=== PATIENT | female | born 1940 | race Caucasian/White ===

== ENCOUNTER 2019-10-26 13:56 | Outpatient (RCR) | payer MEDICARE, OTHER, SELFPAY ==
--- NOTE | 2019-10-26 15:04 | PTOPEVAL ---
Thank you for referring this patient to [facility]. Please review, sign, date and return this plan of care SUE. I agree with and certify that the following plan of care is medically necessary. Referring Physician Date Admitting Provider: Attending Provider: May Anand MD Referring Provider: *PT Outpatient Evaluation Start: 10/26/19 14:03 Freq: Status: Active Protocol: Document 10/26/19 14:04 JAMAL (Rec: 10/26/19 14:59 [email or web address] [id number]) Therapy Assessment Status Assessment Status Assessment Status Evaluation Outpatient Past Medical History Cardiovascular History Hx Hypertension Yes Musculoskeletal History Hx Joint Replacement Yes: R KNEE Endocrine History Hx Diabetes Yes HEENT History Hx Cataracts Yes: RIGHT Hx Retinal Detachment Yes: RIGHT Other History Hx Cancer Yes: LEFT BREAST LUMPECTOMY Evaluation Information Problem Diagnosis unsteady gait, recent fall Onset 10/02/19 Subjective Information Pt. reports that she fell on Query Text:As Reported By Patient/ 10/02/19, and she was turning Family the corner to go to the bathroom and began to fall. She reports that she struck the toilet resulting in rib fx on the left side. She reports that she also struck her head on the bathtub. Pt. reports that she was using a cane at the time of the fall. She reports that the bathroom light was on but the hallway was dark. Pt. notes no recent episodes of stumbling or tripping, but states that in the past 3 years she has had 4 falls. Pt. reports that her goal for therapy is to improve her overall mobility. Prior Level of Function Activity Level (Last 3 Months) Hand Dominance Left Activity of Daily Living Ability Needs Some Help Indoor/Home Mobility Independent Community Mobility Needs Some Help Stairs Ability Independent Functional Cognition (Planning, Shopping Independent , Taking Medications) Cooking Yes Cleaning Yes Laundry Yes Shopping Yes Driving Yes Comments Additional Prior Level o
--- NOTE | 2019-11-17 11:21 | PCPTNOTE ---
patient called and cancelled appointment today. JULIA
== END 2019-12-07 08:31 | disposition home or self-care (01) ==
LOC: CHSPT 13:56
PROVIDERS: PCP Internal Medicine; Visit Provider Internal Medicine
DX: R26.81 Unsteadiness on feet (principal); Z91.81 History of falling
CPT/HCPCS: 97110; 97161; 97530

== ENCOUNTER 2020-07-27 10:27 | Outpatient (CLI) | payer MEDICARE, SELFPAY ==
[2020-07-27 11:06] LABS: Add Urine Microscopic? YES; Appearance Urine Sl Cloudy (Clear); Bilirubin Urine Negative (Negative); Blood Urine Negative (Negative); Color Urine Yellow (Yellow); Glucose Urine UA Negative (Negative); Ketones Urine Negative (Negative); Leukocyte Esterase Ur 1+ (Negative); Nitrate Urine Positive (Negative); Protein Urine 1+ (Negative); Specific Grav Ur 1.025 (1.010-1.020); Urobilinogen Urine 0.2 mg/dL (0.2-1.0); pH Urine 5.5 (5.0-8.0)
[2020-07-27 11:14] LABS: RBC Urine None seen /hpf (0-2); Squamous Epithelial Cell Urine Few /hpf (Few); WBC Urine 16-20 /hpf (0-3)
[2020-07-27 11:15] LABS: Bacteria Urine 1+ /hpf
[2020-07-27 11:23] LABS: Creatinine Urine 171.14 mg/dL (40-278)
[2020-07-27 11:37] LABS: MALB Creatinine Ratio 70.2 mg/g (0-30); Microalbumin Urine Random 120.2 mg/L
[2020-07-27 11:58] LABS: Alanine Aminotransferase 20 U/L (14-59); Albumin Level 3.6 g/dL (3.4-5.0); Alkaline Phosphatase 92 U/L (46-116); Anion Gap 10 mmol/L (8-16); Aspartate Amino Transferase 20 U/L (15-37); Bilirubin,Total 0.3 mg/dL (0.00-1.00); Blood Urea Nitrogen 22 mg/dL (7-18); Carbon Dioxide 26 mmol/L (21-32); Chloride 107 mmol/L (98-108); Cholesterol 169 mg/dL (0-200); Creatine Kinase 42 U/L (26-192); Estimated Glomerular Filt Rate 47; Glucose 118 mg/dL (70-99); HDL Direct 46 mg/dL (40-60); LDL Cholesterol Calculated 92 mg/dL (<130); Osmolality Calculated 300 mOsm/kg (285-295); Potassium 4.5 mmol/L (3.5-5.1); Sodium 143 mmol/L (136-145); Total Protein 6.8 g/dL (6.4-8.2); Triglycerides 156 mg/dL (0-150)
== END 2020-07-27 10:28 | disposition home or self-care (01) ==
LOC: CHSLAB 10:29
PROVIDERS: PCP Internal Medicine; Visit Provider Internal Medicine
DX: E78.2 Mixed hyperlipidemia (principal); E11.65 Type 2 diabetes mellitus with hyperglycemia
CPT/HCPCS: 36415; 80053; 80061; 81001; 82043; 82550; 83036

== ENCOUNTER 2020-12-17 15:29 | Outpatient (CLI) | payer MEDICARE, OTHER, SELFPAY ==
--- NOTE | ~2020-12-17 | XR_ITS ---
XR ankle RT min 3V 12/17/2020 15:54 Indication: Right foot and ankle pain Procedure: 4 views right ankle Comparison: No prior studies for comparison. Findings: There is moderate diffuse soft tissue swelling. Ankle mortise intact. There are degenerativ e changes of the ankle and midfoot. Prominent degenerative calcaneal enthesophyte. No foreign bodies. No acute fracture is identified. Impression: 1: No acute fracture. 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 Reviewed, dictated and finalized at location A. SH OPENER Impression: 1: No acute fracture. 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
--- NOTE | ~2020-12-17 | XR_ITS ---
EXAMINATION: XR foot RT min 3V EXAM DATE: 12/17/2020 15:54 INDICATION: Initial encounter following injury, with pain of the right foot. Injury 8 days ago, persi stent pain. TECHNIQUE: Right foot dorsoplantar, lateral and oblique projections obtained and reviewed. There is no prior study for comparison. FINDINGS: Moderate size inferior calcaneal spur. Moderate to severe polyarticular midfoot osteoarthr itis. There are no acute fractures or dislocations identified. There is no subcutaneous gas. The so ft tissue is unremarkable. There are no radiopaque foreign bodies. IMPRESSION: 1. Right foot exam without acute osseous findings. 2. Advanced midfoot osteoarthritis. Reviewed, dictated and finalized at location B. H BURLER
== END 2020-12-17 15:30 | disposition home or self-care (01) ==
LOC: CHSIMG 15:32
PROVIDERS: PCP Internal Medicine; Visit Provider Internal Medicine
DX: M25.571 Pain in right ankle and joints of right foot (principal); M79.671 Pain in right foot
CPT/HCPCS: 73610; 73630

== ENCOUNTER 2021-01-21 10:07 | Outpatient (CLI) | payer MEDICARE, SELFPAY ==
[2021-01-21 11:05] LABS: Anion Gap 6 mmol/L (8-16); Blood Urea Nitrogen 16 mg/dL (7-18); Calcium 9.2 mg/dL (8.5-10.1); Carbon Dioxide 30 mmol/L (21-32); Chloride 105 mmol/L (98-108); Estimated Glomerular Filt Rate 50; Glucose 126 mg/dL (70-99); Osmolality Calculated 295 mOsm/kg (285-295); Potassium 4.1 mmol/L (3.5-5.1); Sodium 141 mmol/L (136-145)
[2021-01-21 11:14] LABS: Hemoglobin A1C 7.2 % (<5.7)
== END 2021-01-21 10:08 | disposition home or self-care (01) ==
LOC: CHSLAB 10:08
PROVIDERS: PCP Internal Medicine; Visit Provider Internal Medicine
DX: E11.9 Type 2 diabetes mellitus without complications (principal)
CPT/HCPCS: 36415; 80048; 83036

== ENCOUNTER 2021-05-14 09:56 | Outpatient (CLI) | payer MEDICARE, SELFPAY ==
[2021-05-14 10:10] LABS: Basophils Absolute Auto 0.05 K/mm3 (0.00-0.10); Basophils Percent Auto 0.8 % (0.0-1.0); Eosinophils Absolute Auto 0.12 K/mm3 (0.02-0.50); Eosinophils Percent Auto 1.8 % (1.0-6.0); Hematocrit 40.7 % (35.0-42.0); Hemoglobin 13.5 g/dL (11.7-13.8); Immature Granulocyte Absolute 0.01 K/mm3 (0.00-0.00); Immature Granulocyte Percent A 0.2 % (0.0-0.0); Lymphocytes Absolute Auto 2.85 K/mm3 (1.10-4.50); Lymphocytes Percent Auto 42.9 % (18.0-42.0); Mean Corpuscular HGB Conc 33.2 g/dL (32.0-36.0); Mean Corpuscular Hemoglobin 32.6 pg (27.0-31.0); Mean Corpuscular Volume 98.3 fL (78.0-102.0); Mean Platelet Volume 9.3 fl (9.2-11.8); Monocytes Absolute Auto 0.48 K/mm3 (0.10-0.90); Monocytes Percent Auto 7.2 % (2.0-11.0); Neutrophils Absolute Auto 3.1 K/mm3 (1.7-7.2); Neutrophils Percent Auto 47.1 % (50.0-70.0); Platelet Count Result 181 K/mm3 (150-420); Red Blood Count 4.14 M/mm3 (4.20-5.40); Red Cell Distribution Width 12.1 % (11.6-14.4); White Blood Count 6.6 K/mm3 (4.8-10.8)
[2021-05-14 10:13] LABS: Add Urine Microscopic? YES; Appearance Urine Clear (Clear); Bilirubin Urine Negative (Negative); Blood Urine Negative (Negative); Color Urine Light Yellow (Yellow); Glucose Urine UA Negative (Negative); Ketones Urine Negative (Negative); Leukocyte Esterase Ur Trace (Negative); Nitrate Urine Positive (Negative); Protein Urine Negative (Negative); Specific Grav Ur <= 1.005 (1.010-1.020); Urobilinogen Urine 0.2 mg/dL (0.2-1.0)
[2021-05-14 10:23] LABS: Bacteria Urine 3+ /hpf; RBC Urine None seen /hpf (0-2); Squamous Epithelial Cell Urine Few /hpf (Few); WBC Urine None seen /hpf (0-3)
[2021-05-14 10:34] LABS: Hemoglobin A1C 7.1 % (<5.7)
[2021-05-14 11:14] LABS: Alanine Aminotransferase 23 U/L (14-59); Albumin Level 3.7 g/dL (3.4-5.0); Alkaline Phosphatase 102 U/L (46-116); Anion Gap 11 mmol/L (8-16); Aspartate Amino Transferase 16 U/L (15-37); Bilirubin,Total 0.4 mg/dL (0.00-1.00); Blood Urea Nitrogen 16 mg/dL (7-18); Calcium 9.2 mg/dL (8.5-10.1); Carbon Dioxide 28 mmol/L (21-32); Chloride 107 mmol/L (98-108); Cholesterol 149 mg/dL (0-200); Creatine Kinase 39 U/L (26-192); Estimated Glomerular Filt Rate 51; Free T4 Free Thyroxine 0.99 ng/dL (0.76-1.46); Glucose 135 mg/dL (70-99); HDL Direct 43 mg/dL (40-60); LDL Cholesterol Calculated 74 mg/dL (<130); Osmolality Calculated 305 mOsm/kg (285-295); Potassium 4.3 mmol/L (3.5-5.1); Sodium 146 mmol/L (136-145); Thyroid Stimulating Hormone 1.12 uIU/mL (0.36-3.74); Triglycerides 159 mg/dL (0-150)
[2021-05-14 11:29] LABS: Vitamin B12 > 2000 pg/mL (193-986)
[2021-05-16 12:04] LABS: Vitamin D 25 Hydroxy 34 ng/mL (30-100)
== END 2021-05-14 09:57 | disposition home or self-care (01) ==
LOC: CHSLAB 09:58
PROVIDERS: PCP Internal Medicine; Visit Provider Internal Medicine
DX: E11.65 Type 2 diabetes mellitus with hyperglycemia (principal); I10 Essential (primary) hypertension; E78.2 Mixed hyperlipidemia; G63 Polyneuropathy in diseases classified elsewhere; M81.0 Age-related osteoporosis without current pathological fracture
CPT/HCPCS: 36415; 80053; 80061; 81001; 82306; 82550; 82607; 83036; 84439; 84443; 85025

== ENCOUNTER 2021-08-29 13:37 | Outpatient (CLI) | payer MEDICARE, SELFPAY ==
[2021-08-29 14:32] LABS: Influenza A QL RT-PCR Negative (Negative); Influenza B QL RT-PCR Negative (Negative); SARS-CoV-2 RNA PCR Negative (Negative)
== END 2021-08-29 13:38 | disposition home or self-care (01) ==
LOC: CHSLAB 13:39
PROVIDERS: PCP Internal Medicine; Visit Provider Internal Medicine
DX: J06.9 Acute upper respiratory infection, unspecified (principal); Z20.822 Contact with and (suspected) exposure to COVID-19
CPT/HCPCS: 87502; C9803; U0003; U0005

== ENCOUNTER 2021-11-04 09:11 | Outpatient (CLI) | payer MEDICARE, SELFPAY ==
[2021-11-04 09:30] LABS: Basophils Absolute Auto 0.05 K/mm3 (0.00-0.10); Basophils Percent Auto 0.6 % (0.0-1.0); Eosinophils Absolute Auto 0.15 K/mm3 (0.02-0.50); Eosinophils Percent Auto 1.9 % (1.0-6.0); Hematocrit 39.4 % (35.0-42.0); Hemoglobin 12.9 g/dL (11.7-13.8); Immature Granulocyte Absolute 0.02 K/mm3 (0.00-0.00); Immature Granulocyte Percent A 0.2 % (0.0-0.0); Lymphocytes Absolute Auto 3.46 K/mm3 (1.10-4.50); Mean Corpuscular HGB Conc 32.7 g/dL (32.0-36.0); Mean Corpuscular Hemoglobin 32.5 pg (27.0-31.0); Mean Corpuscular Volume 99.2 fL (78.0-102.0); Monocytes Absolute Auto 0.73 K/mm3 (0.10-0.90); Monocytes Percent Auto 9.1 % (2.0-11.0); Neutrophils Absolute Auto 3.6 K/mm3 (1.7-7.2); Neutrophils Percent Auto 45.2 % (50.0-70.0); Platelet Count Result 198 K/mm3 (150-420); Red Blood Count 3.97 M/mm3 (4.20-5.40); Red Cell Distribution Width 12.5 % (11.6-14.4); White Blood Count 8.1 K/mm3 (4.8-10.8)
[2021-11-04 10:02] LABS: Add Urine Microscopic? YES; Appearance Urine Clear (Clear); Bilirubin Urine Negative (Negative); Blood Urine Negative (Negative); Color Urine Light Yellow (Yellow); Glucose Urine UA Negative (Negative); Ketones Urine Negative (Negative); Leukocyte Esterase Ur Trace LEU/UL (Negative); Nitrate Urine Negative (Negative); Protein Urine Negative (Negative); Urobilinogen Urine 0.2 mg/dL (0.2-1.0)
[2021-11-04 10:09] LABS: Bacteria Urine Trace /hpf; RBC Urine None seen /hpf (0-2); Squamous Epithelial Cell Urine Rare /hpf (Few); WBC Urine 0-3 /hpf (0-3)
[2021-11-04 10:35] LABS: Hemoglobin A1C 7.4 % (<5.7)
[2021-11-04 10:46] LABS: Creatinine Urine 109.33 mg/dL (40-278); MALB Creatinine Ratio 90.7 mg/g (0-30); Microalbumin Urine Random 99.2 mg/L
[2021-11-04 10:55] LABS: Alanine Aminotransferase 19 U/L (14-59); Albumin Level 3.2 g/dL (3.4-5.0); Alkaline Phosphatase 108 U/L (46-116); Anion Gap 9 mmol/L (8-16); Aspartate Amino Transferase 15 U/L (15-37); Bilirubin,Total 0.3 mg/dL (0.00-1.00); Blood Urea Nitrogen 17 mg/dL (7-18); Calcium 9.1 mg/dL (8.5-10.1); Carbon Dioxide 28 mmol/L (21-32); Chloride 105 mmol/L (98-108); Cholesterol 143 mg/dL (0-200); Creatine Kinase 33 U/L (26-192); Estimated Glomerular Filt Rate 51; Free T3 2.17 pg/mL (2.18-3.98); Free T4 Free Thyroxine 0.96 ng/dL (0.76-1.46); Glucose 161 mg/dL (70-99); HDL Direct 40 mg/dL (40-60); LDL Cholesterol Calculated 75 mg/dL (<130); Osmolality Calculated 298 mOsm/kg (285-295); Potassium 4.2 mmol/L (3.5-5.1); Sodium 142 mmol/L (136-145); Total Protein 6.9 g/dL (6.4-8.2); Triglycerides 141 mg/dL (0-150)
[2021-11-06 15:42] LABS: Vitamin D 25 Hydroxy 36 ng/mL (30-100)
== END 2021-11-04 09:12 | disposition home or self-care (01) ==
LOC: CHSLAB 09:13
PROVIDERS: PCP Internal Medicine; Visit Provider Internal Medicine
DX: E11.42 Type 2 diabetes mellitus with diabetic polyneuropathy (principal); I10 Essential (primary) hypertension; E78.2 Mixed hyperlipidemia; E11.65 Type 2 diabetes mellitus with hyperglycemia; R53.83 Other fatigue; M81.0 Age-related osteoporosis without current pathological fracture
CPT/HCPCS: 36415; 80053; 80061; 81001; 82043; 82306; 82550; 83036; 84439; 84443; 84481; 85025

== ENCOUNTER 2021-12-02 16:21 | Outpatient (CLI) | payer MEDICARE, SELFPAY ==
[2021-12-02 16:54] LABS: Basophils Absolute Auto 0.04 K/mm3 (0.00-0.10); Basophils Percent Auto 0.5 % (0.0-1.0); Eosinophils Absolute Auto 0.08 K/mm3 (0.02-0.50); Hematocrit 42.1 % (35.0-42.0); Hemoglobin 13.7 g/dL (11.7-13.8); Immature Granulocyte Absolute 0.01 K/mm3 (0.00-0.00); Immature Granulocyte Percent A 0.1 % (0.0-0.0); Lymphocytes Absolute Auto 3.88 K/mm3 (1.10-4.50); Lymphocytes Percent Auto 46.6 % (18.0-42.0); Mean Corpuscular HGB Conc 32.5 g/dL (32.0-36.0); Mean Corpuscular Hemoglobin 32.4 pg (27.0-31.0); Mean Corpuscular Volume 99.5 fL (78.0-102.0); Mean Platelet Volume 9.5 fl (9.2-11.8); Monocytes Absolute Auto 0.67 K/mm3 (0.10-0.90); Monocytes Percent Auto 8.1 % (2.0-11.0); Neutrophils Absolute Auto 3.6 K/mm3 (1.7-7.2); Neutrophils Percent Auto 43.7 % (50.0-70.0); Platelet Count Result 220 K/mm3 (150-420); Red Blood Count 4.23 M/mm3 (4.20-5.40); Red Cell Distribution Width 13.1 % (11.6-14.4); White Blood Count 8.3 K/mm3 (4.8-10.8)
[2021-12-02 17:09] LABS: Alanine Aminotransferase 34 U/L (14-59); Albumin Level 3.5 g/dL (3.4-5.0); Alkaline Phosphatase 96 U/L (46-116); Anion Gap 10 mmol/L (8-16); Aspartate Amino Transferase 26 U/L (15-37); Bilirubin,Total 0.2 mg/dL (0.00-1.00); Blood Urea Nitrogen 17 mg/dL (7-18); Calcium 8.9 mg/dL (8.5-10.1); Carbon Dioxide 24 mmol/L (21-32); Chloride 106 mmol/L (98-108); Estimated Glomerular Filt Rate 53; Glucose 103 mg/dL (70-99); Osmolality Calculated 291 mOsm/kg (285-295); Potassium 3.9 mmol/L (3.5-5.1); Sodium 140 mmol/L (136-145); Total Protein 7.7 g/dL (6.4-8.2)
== END 2021-12-02 16:22 | disposition home or self-care (01) ==
LOC: CHSLAB 16:22
PROVIDERS: PCP Internal Medicine; Visit Provider Internal Medicine
DX: R19.7 Diarrhea, unspecified (principal); K92.1 Melena
CPT/HCPCS: 36415; 80053; 85025; 85610

== ENCOUNTER 2021-12-03 11:08 | Outpatient (CLI) | payer MEDICARE, SELFPAY | END 2021-12-03 11:09 | disposition home or self-care (01) | LOC: CHSLAB 11:11 | PROVIDERS: PCP Internal Medicine; Visit Provider Internal Medicine | DX: R19.7 Diarrhea, unspecified (principal) | CPT/HCPCS: 87324 ==

== ENCOUNTER 2022-01-20 12:50 | Outpatient (CLI) | payer MEDICARE, OTHER, SELFPAY ==
--- NOTE | ~2022-01-20 | CT_ITS ---
EXAMINATION: CT sinus wo con EXAM DATE: 01/20/2022 13:17 INDICATION: Acute sinusitis @ L side w/ drainage . TECHNIQUE: Spiral CT of the sinuses was acquired in the axial plane. Coronal and sagittal reformatte d images were also reviewed. The dose-length product (DLP) for this examination was 286.97 mGy-cm. Iterative reconstruction (ASIR) was used as dose reduction technique. Correlation is made to head CT 2013. FINDINGS: The sinuses are normally developed. Completely opacified left frontal, ethmoid, maxillar y and sphenoid sinuses. Left ostiomeatal unit is completely occluded, the right is patent. There is moderate right ethmoid and right sphenoid mucoperiosteal thickening. There is no sinus wall thickeni ng. There is moderate S-shaped nasal septal deviation. The mastoid air cells and middle ears are well aerated. External auditory canals are patent. The orbits and visualized soft tissues are un remarkable. IMPRESSION: Left OMU obstructive pattern with extensive left-sided predominant sinus disease. Reviewed, dictated and finalized at location B.
== END 2022-01-20 12:51 | disposition home or self-care (01) ==
PROVIDERS: PCP Internal Medicine; Visit Provider Otolaryngology
DX: J01.90 Acute sinusitis, unspecified (principal); R09.82 Postnasal drip; J34.89 Other specified disorders of nose and nasal sinuses; R09.81 Nasal congestion; J34.2 Deviated nasal septum; J34.3 Hypertrophy of nasal turbinates
CPT/HCPCS: 70486

== ENCOUNTER 2022-02-10 09:55 | Outpatient (CLI) | payer MEDICARE, OTHER, SELFPAY ==
--- NOTE | 2022-02-10 09:57 | ECG_ITS ---
Measurements Intervals [place] Rate: 76 P: -3 WV: 170 QRS: 64 QRSD: 88 T: 51 QT: 399 QTc: 451 Interpretive Statements SINUS RHYTHM BASELINE ARTIFACT- II, III, AVR, AVF NORMAL ECG Electronically Signed On 02-10-2022 10:23:46 CDT by Wood Lucero D.O.
[2022-02-10 10:28] LABS: Anion Gap 6 mmol/L (8-16); Blood Urea Nitrogen 15 mg/dL (7-18); Calcium 9.2 mg/dL (8.5-10.1); Carbon Dioxide 29 mmol/L (21-32); Chloride 104 mmol/L (98-108); Estimated Glomerular Filt Rate 50; Glucose 150 mg/dL (70-99); Osmolality Calculated 291 mOsm/kg (285-295); Potassium 4.3 mmol/L (3.5-5.1); Sodium 139 mmol/L (136-145)
== END 2022-02-10 09:56 | disposition home or self-care (01) ==
LOC: CHSLAB 09:57
PROVIDERS: PCP Internal Medicine; Visit Provider Anesthesiology
DX: E11.9 Type 2 diabetes mellitus without complications (principal); I10 Essential (primary) hypertension
CPT/HCPCS: 36415; 80048; 93005

== ENCOUNTER 2022-06-26 14:16 | Outpatient (CLI) | payer MEDICARE, SELFPAY ==
[2022-06-26 14:39] LABS: Basophils Absolute Auto 0.04 K/mm3 (0.00-0.10); Basophils Percent Auto 0.6 % (0.0-1.0); Eosinophils Absolute Auto 0.08 K/mm3 (0.02-0.50); Eosinophils Percent Auto 1.2 % (1.0-6.0); Hematocrit 39.7 % (35.0-42.0); Hemoglobin 12.9 g/dL (11.7-13.8); Immature Granulocyte Absolute 0.02 K/mm3 (0.00-0.00); Immature Granulocyte Percent A 0.3 % (0.0-0.0); Lymphocytes Absolute Auto 3.49 K/mm3 (1.10-4.50); Lymphocytes Percent Auto 52.7 % (18.0-42.0); Mean Corpuscular HGB Conc 32.5 g/dL (32.0-36.0); Mean Corpuscular Hemoglobin 31.8 pg (27.0-31.0); Mean Corpuscular Volume 97.8 fL (78.0-102.0); Mean Platelet Volume 9.6 fl (9.2-11.8); Monocytes Absolute Auto 0.62 K/mm3 (0.10-0.90); Monocytes Percent Auto 9.4 % (2.0-11.0); Neutrophils Absolute Auto 2.4 K/mm3 (1.7-7.2); Neutrophils Percent Auto 35.8 % (50.0-70.0); Platelet Count Result 179 K/mm3 (150-420); Red Blood Count 4.06 M/mm3 (4.20-5.40); Red Cell Distribution Width 12.3 % (11.6-14.4); White Blood Count 6.6 K/mm3 (4.8-10.8)
[2022-06-26 14:40] LABS: Add Urine Microscopic? YES; Appearance Urine Clear (Clear); Bilirubin Urine Negative (Negative); Blood Urine Negative (Negative); Color Urine Yellow (Yellow); Glucose Urine UA Negative (Negative); Ketones Urine Negative (Negative); Leukocyte Esterase Ur 2+ (Negative); Nitrate Urine Negative (Negative); Protein Urine 1+ (Negative); Specific Grav Ur 1.025 (1.010-1.020); Urobilinogen Urine 0.2 mg/dL (0.2-1.0)
[2022-06-26 14:57] LABS: Bacteria Urine 2+ /hpf; RBC Urine None seen /hpf (0-2); Renal Epithelial Cells Urine Few /hpf; Squamous Epithelial Cell Urine Few /hpf (Few); WBC Urine 21-30 /hpf (0-3)
[2022-06-26 15:09] LABS: Hemoglobin A1C 7.3 % (<5.7)
[2022-06-26 15:41] LABS: Alanine Aminotransferase 21 U/L (14-59); Albumin Level 3.7 g/dL (3.4-5.0); Alkaline Phosphatase 93 U/L (46-116); Anion Gap 9 mmol/L (8-16); Aspartate Amino Transferase 19 U/L (15-37); Bilirubin,Total 0.3 mg/dL (0.00-1.00); Blood Urea Nitrogen 20 mg/dL (7-18); Carbon Dioxide 27 mmol/L (21-32); Chloride 104 mmol/L (98-108); Cholesterol 142 mg/dL (0-200); Creatine Kinase 51 U/L (26-192); Estimated Glomerular Filt Rate 46; Free T3 2.18 pg/mL (2.18-3.98); Glucose 139 mg/dL (70-99); HDL Direct 43 mg/dL (40-60); LDL Cholesterol Calculated 70 mg/dL (<130); Osmolality Calculated 294 mOsm/kg (285-295); Potassium 4.5 mmol/L (3.5-5.1); Sodium 140 mmol/L (136-145); Thyroid Stimulating Hormone 1.01 uIU/mL (0.36-3.74); Total Protein 7.1 g/dL (6.4-8.2); Triglycerides 147 mg/dL (0-150); Vitamin B12 1252 pg/mL (193-986)
[2022-06-26 15:42] LABS: Erythrocyte Sedimentation Rate 22 mm/hr (0-20)
[2022-06-26 15:43] LABS: CRP < 0.2 mg/dL (0.0-0.9)
[2022-06-30 07:59] LABS: MALB Creatinine Ratio 135.5 mg/g (0-30)
== END 2022-06-26 14:17 | disposition home or self-care (01) ==
LOC: CHSLAB 14:19
PROVIDERS: PCP Internal Medicine; Visit Provider Internal Medicine
DX: E78.2 Mixed hyperlipidemia (principal); E11.29 Type 2 diabetes mellitus with other diabetic kidney complication; I10 Essential (primary) hypertension; G63 Polyneuropathy in diseases classified elsewhere
CPT/HCPCS: 36415; 80053; 80061; 81001; 82043; 82550; 82607; 83036; 84439; 84443; 84481; 85025; 85652; 86140

== ENCOUNTER 2022-07-01 13:45 | Outpatient (CLI) | payer MEDICARE, OTHER, SELFPAY ==
[2022-07-05 07:54] LABS: Reference Lab Test Name FLOW CYTOMETRY
== END 2022-07-01 13:46 | disposition home or self-care (01) ==
LOC: CHSLAB 13:49
PROVIDERS: PCP Internal Medicine; Visit Provider Internal Medicine
DX: D72.820 Lymphocytosis (symptomatic) (principal)
CPT/HCPCS: 36415; 88184; 88185; 88189

== ENCOUNTER 2022-07-07 12:25 | Outpatient (CLI) | payer MEDICARE, OTHER, SELFPAY ==
--- NOTE | 2022-07-07 13:24 | ECHO_ITS ---
Patient Info Name: Chayo Nunez Age: 82 years : 1940 Gender: Female Ht: 69 in Wt: 245 lbs BSA: 2.37 m2 HR: 65 bpm BP: 145 / 87 mmHg Technical Quality: Good Exam Date: 07/07/2022 12:24 PM Exam Location: [facility] Patient Status: Outpatient Admit Date: 07/07/2022 Staff Ordering Physician: May Anand MD Sales Representative Publications: Sang James RDCS, RT Attending Provider: May Anand MD Referring Physician: Cheng CHEN; Exam Type: CA echo doppler color flow Study Info Indications R01.1 - Cardiac murmur, unspecified Complete two-dimensional, color flow and Doppler transthoracic echocardiogram is performed. Strain analysis performed. Summary 1. Complete two-dimensional, color flow and Doppler transthoracic echocardiogram is performed. 2. Left ventricular chamber dimension is normal. 3. Left ventricular systolic function is normal, estimated at 60-65%. 4. There is mildly increased left ventricular wall thickness. 5. The left ventricular diastolic function is grade I diastolic dysfunction. 6. E/e' 16 is elevated. 7. Global longitudinal strain is abnormal at -15.0%. 8. Left atrial chamber dimension is mildly enlarged. 9. There is mild mitral valve regurgitation. 10. There is trace tricuspid valve regurgitation. Left Ventricle E/e' 16 is elevated. Global longitudinal strain is abnormal at -15.0%. Left ventricular chamber dimension is normal. Left ventricular systolic function is normal, estimated at 60-65%. There is mildly increased left ventricular wall thickness. The left ventricular diastolic function is grade I diastolic dysfunction. Right Ventricle Right ventricular systolic function is normal and with normal TAPSE 1.9 cm. Right ventricular chamber dimension is normal. Left Atria Left atrial chamber dimension is mildly enlarged. Right Atria Right atrial chamber dimension is normal. Aortic Valve The aortic valve is trileaflet. There is no aortic valve stenosis. There is no aortic valve regurgitation. Pulmonic Valve There is no pulmonic regurgitation. Mitral Valve There is no mitral valve stenosis. There is mild mitral valve regurgitation. Tricuspid Valve RVSP is not calculated due to an inadequate TR jet. There is trace tricuspid valve regurgitation. Pericardium/Pleural There is no pericardial effusion. Inferior Vena Cava Normal inferior vena cava with >50% collapse upon inspiration consistent with normal right atrial pressure, 5 mmHg. Aorta The aortic root size at the sinus of Valsalva is normal. Left Ventricular Outflow Tract Name Value Normal LVOT 2D LVOT Diameter 2.0 cm LVOT Doppler LVOT Peak Velocity 111 cm/s LVOT Peak Gradient 4 mmHg LVOT Mean Gradient 2 mmHg LVOT VTI 25 cm LVOT VTI/AV VTI Ratio 0.7 LVOT Stroke Volume 77 ml Mitral Valve Name Value Normal
== END 2022-07-07 12:26 | disposition home or self-care (01) ==
LOC: CHSIMG 12:28
PROVIDERS: PCP Internal Medicine; Visit Provider Internal Medicine
DX: I35.8 Other nonrheumatic aortic valve disorders (principal)
CPT/HCPCS: 93306

== ENCOUNTER 2022-07-09 12:55 | Outpatient (CLI) | payer MEDICARE, OTHER, SELFPAY ==
--- NOTE | ~2022-07-09 | US_ITS ---
EXAMINATION: US carotid duplex BI DATE: 07/09/2022 13:59 INDICATION: Carotid stenosis TECHNIQUE: Grayscale, color Doppler, and pulsed Doppler images of the cervical carotid arteries were obtained. The degree of vessel stenosis is placed in one of the following categories: normal, <50%, 5 0-69%, >=70% but less than near-occlusion, near-occlusion, or total occlusion. Note that percent sten osis relative to normal distal artery lumen diameter is indirectly measured from velocity measurement s as described by Chemo, et al. Radiology 2003; 229:340-346. Notes: Normal: Peak systolic velocity <125 centimeters/sec and no plaque <50%. Peak systolic velocity <125 ( EDV <40; ICA/CCA PSV ratio <2.0; used these factors only a tandem lesions or low cardiac output or co ntralateral disease) 50-69 %: PSV 125-230 (EDV 40-100; ratio 2-4) >= 70% but less than near occlusion: PSV greater than 230 (EDV > 100; ratio> 4.0) Near Occlusion: PSV that is variable; markedly narrowed lumen Occlusion: Absent flow on color/spectral Doppler and no lumen on piña scale. COMPARISON: None. FINDINGS: RIGHT: The right common carotid artery (CCA) peak systolic velocity (PSV) is 59 cm/s. The right internal car otid artery (ICA) PSV is 97 cm/s. The right ICA end-diastolic velocity (EDV) is 17 cm/s. The right IC A/CCA PSV ratio is 1.6. The external carotid artery (ECA) PSV is 141 cm/s. There is antegrade flow in the right vertebral artery. LEFT: The left CCA PSV is 81 cm/s. The left ICA PSV is 96 cm/s. The left ICA EDV is 20 cm/s. The left ICA/C CA PSV ratio is 1.2. The ECA PSV is 66 cm/s. There is antegrade flow in the left vertebral artery. IMPRESSION: 1. Less than 50% stenosis in the right internal carotid artery by sonographic criteria. 2. Less than 50% stenosis in the left internal carotid artery by sonographic criteria. Reviewed, dictated and finalized at location B. IMPRESSION: 1. Less than 50% stenosis in the right internal carotid artery by sonographic faye robert. 2. Less than 50% stenosis in the left internal carotid artery by sonographic gaby danielson.
--- NOTE | ~2022-07-09 | MM_ITS ---
EXAMINATION: MM screening lynne BI w danilo HISTORY: Screening mammogram TECHNIQUE: Craniocaudal and mediolateral oblique 3-D tomosynthesis images were obtained and synthetic 2-D images were generated. CAD analysis was submitted and interpreted. COMPARISON: 01/26/2013 diagnostic left mammogram 4 bilateral screening mammogram BREAST PARENCHYMAL COMPOSITION: There are scattered areas of fibroglandular density. FINDINGS: There is volume loss of left breast and some calcified fat necrosis and scarring in the upp er outer quadrant in addition to mild asymmetric skin thickening; history of prior left breast cancer . There are scattered benign calcifications in both breasts. No suspicious mass or other architectural distortion or any malignant calcification is noted. There is no evidence of suspicious mass, calcific ation, or architectural distortion to suggest malignancy in either breast. There has been no suspicio us interval change. IMPRESSION: 1. Status post left partial mastectomy for breast cancer. No mammographic evidence of malignancy. 2. Recommend routine screening mammography in one year. BI-RADS Category 2: Benign finding(s). Reviewed, dictated and finalized at location A. IMPRESSION: 1. Status post left partial mastectomy for breast cancer. No mammographic evide nce of malignancy. 2. Recommend routine screening mammography in one year. BI-RADS Category 2: Benign finding(s).
--- NOTE | ~2022-07-09 | DEXA_ITS ---
Bone Density Report Name: MICHELLE BOTELLO Age: 82 Sex: Female Ethnicity: White Date of : 1940 Indication: postmenopausal; screening for osteoporosis; prior fracture; Referring Provider: May Anand Study: Bone densitometry was performed. Exam Date: July 09, 2022 Accession number: [id number] Bone Density: Region BMD T-score Z-score Classification AP Spine(L1, L2) 1.047 0.6 3.2 Normal Femoral Neck (Left) 0.771 -0.7 1.7 Normal Total Hip (Left) 0.868 -0.6 1.6 Normal Femoral Neck (Right) 0.819 -0.3 2.1 Normal Total Hip (Right) 0.917 -0.2 2.0 Normal Femoral Neck Mean 0.795 -0.5 1.9 Normal Total Hip Mean 0.892 -0.4 1.8 Normal World Health Organization criteria for BMD impression classify patients as: Normal (T-score at or above -1.0), Osteopenia (T-score between -1.0 and -2.5), or Osteoporosis (T-score at or below -2.5). 10-year Fracture Risk: FRAX not reported because: All T-scores for Spine Total, Hip Total, Femoral Neck at or above -1.0 Clinical Information Provided by Patient: Has had a low trauma fracture Has used the following medications: Vitamin D, Calcium Patient maximum height was 70 Menopause Age: 50 No regular weight bearing exercise Drinks caffeinated beverages Onset of menses at age 13 Number of children 2 Impression: The patient has normal bone mass. The patient has risk factors, including: previous fracture. Discussion: BONE DENSITY IS ABOVE THE MINIMUM DESIRABLE LEVEL AT ALL SKELETAL SITES TESTED. This patient?s bone mineral density is above the minimum desirable level (T-score -1.0 or better) at all sites measured. The patient should follow a healthful lifestyle (good nutrition with adequate calcium and vitamin D, and appropriate weight-bearing exercise). Follow-Up: Consider repeating this study in 5 years or sooner if there is some new clinical indication. Reported by: Dr. Óscar Castillo on 07/09/2022 2:30:00 PM. Reviewed, dictated and finalized at location [facility]
== END 2022-07-09 12:56 | disposition home or self-care (01) ==
LOC: CHSIMG 12:57
PROVIDERS: PCP Internal Medicine; Visit Provider Internal Medicine
DX: M81.0 Age-related osteoporosis without current pathological fracture (principal); I65.23 Occlusion and stenosis of bilateral carotid arteries; I35.8 Other nonrheumatic aortic valve disorders; Z12.31 Encounter for screening mammogram for malignant neoplasm of breast; Z85.3 Personal history of malignant neoplasm of breast
CPT/HCPCS: 77063; 77067; 77080; 93880

== ENCOUNTER 2022-07-23 17:26 | Emergency (ER) | payer MEDICARE, OTHER, SELFPAY ==
[2022-07-23] VITALS (26 sets, daily range): BP systolic 167–214; BP diastolic 64–130; PULSE 70–92; RESP 10–20; TEMP 36.3–36.6; O2SAT 90–100
--- NOTE | ~2022-07-23 | CT_ITS ---
EXAMINATION: CT brain wo con DATE: 07/23/2022 17:57 INDICATION: FACIAL DROOP . TECHNIQUE: Computed tomography (CT) of the head was performed without intravenous contrast. The mA wa s adjusted according to patient size. Iterative reconstruction technique was employed. The dose-lengt h product was 605.33 mGy-cm. COMPARISON: CT sinus 01/20/2022, MR brain 06/16/2012. FINDINGS: No acute intracranial hemorrhage or extra-axial fluid collection. No hydrocephalus, mass, or herniation. No acute ischemic infarct. Unremarkable dural venous sinus attenuation. No acute osseous abnormality. Opacification of the left frontal ethmoid sphenoid and maxillary sinuses. Air-fluid levels in the rig ht sphenoid and maxillary sinuses. Mucosal thickening in the right ethmoid and sphenoid sinuses. Mast oid air cells are clear. Moderate atrophy and chronic white matter change. Atherosclerotic intracranial calcification. Right l ens replacement. IMPRESSION: No acute intracranial process. CT findings suggestive of acute on chronic sinusitis. Reviewed, dictated and finalized at location K. IMPRESSION: No acute intracranial process. CT findings suggestive of acute on chronic sinus itis.
[2022-07-23 17:40] LABS: Glucose Point of Care 87 mg/dl (65-105)
--- NOTE | 2022-07-23 17:46 | ED.NEUROSD ---
HPI - Neuro Symptoms/Deficit General Chief Complaint: Suspected CVA Stated Complaint: right side of face sagging Time Seen by Provider: 07/23/22 17:41 Source: patient History of Present Illness HPI Narrative: 82-year-old female with a history of hypertension, diabetes mellitus, dyslipidemia, anxiety / depression, B12 deficiency, GERD, breast cancer status post lumpectomy was talking to her friend when she noted at 17 12 -- generalized headache -- confusion -- unable to form sentences. Subsequently headache resolved. -- She noted right facial droop. In view of the above symptoms she presented to the hospital. Onset (ago): minute(s) ( 30 minutes ago) Time: 17:00 Location: right face History of same: No Severity: mild Relieving factors: none Exacerbating factors: none Context: sudden onset Associated symptoms: confusion and headaches Treatments Prior to Arrival: none Related Data Home Medications Medication Instructions Recorded Confirmed anastrozole 1 mg tablet 1 mg PO DAILY 10/04/19 07/23/22 atenolol 25 mg tablet 25 mg PO QA 10/04/19 07/23/22 escitalopram oxalate 10 mg tablet 5 mg PO HS 10/04/19 07/23/22 glimepiride 1 mg tablet 2 mg PO HS 10/04/19 07/23/22 losartan 50 mg tablet 50 mg PO BID 10/04/19 07/23/22 omeprazole 40 mg capsule,delayed 40 mg PO DAILY 10/04/19 07/23/22 release pravastatin 20 mg tablet 20 mg PO HS 10/04/19 07/23/22 tramadol 50 mg tablet 25 mg PO BID 10/04/19 07/23/22 cholecalciferol (vitamin D3) 25 25 mcg PO DAILY 02/07/22 07/23/22 mcg (1,000 unit) capsule cyanocobalamin (vitamin B-12) 1,000 mcg PO DAILY 02/07/22 07/23/22 1,000 mcg tablet pyridoxine (vitamin B6) 100 mg 100 mg PO DAILY 02/07/22 07/23/22 tablet vitamin B complex 1 cap PO DAILY 02/07/22 07/23/22 Allergies Allergy/AdvReac Type Severity Reaction Status Date / Time Penicillins Allergy Rash Verified 07/23/22 18:16 quinine Allergy ITCHING, Verified 07/23/22 18:16 HOT FEELING Sulfa (Sulfonamide Allergy Unknown Verified 07/23/22 19:56 Antibiotics) Review of Systems Review of Systems: All systems reviewed & are unremarkable except as noted in HPI and below Constitutional: Constitutional: Reports as per HPI and Reports no additional constitutional complaints Eyes: Eyes: Reports as per HPI and Reports no additional eye complaints ENT: Reports system reviewed and no additional complaints, except as documented and Reports as per HPI Cardiovascular: Cardiovascular: Reports as per HPI and Reports no additional cardiovascular complaints Respiratory: Respiratory: Reports as per HPI and Reports no additional respiratory complaints Gastrointestinal: Gastrointestinal: Reports as per HPI and Reports no additional gastrointestinal complaints Genitourinary: Genitourinary: Reports no additional female genitourinary complaints and Reports as per HPI Musculoskeletal: Musculoskeletal: Reports no additional musculoskeletal complaints and Reports as per HPI Integumentary/Breasts: Skin/Breast: Reports system reviewed and no additional complaints, except as docu and Reports as per HPI Neurologic: Reports system reviewed and no additional complaints, except as documented and Reports as per HPI Psychiatric: Psychiatric: Reports no additional psychiatric complaints, Reports as per HPI and Reports anxiety Endocrine: Endocrine: Reports no additional endocrine complaints and Reports as per HPI Hematologic/Lymphatic: Hematologic/Lymphatic: Reports no additional hematologic/lymphatic complaints and Reports as per HPI Allergic/Immunologic: Allergic/Immunologic: Reports no additional allergic/immunologic complaints and Reports as per HPI [facility] Past Medical History Medical History Dyslipidemia GERD (gastroesophageal reflux disease) History of breast cancer S/P radiation History of depression Hypertension Osteoarthritis Type 2 diabetes mellitus Surgical History S
--- NOTE | 2022-07-23 17:47 | ECG_ITS ---
Measurements Intervals [place] Rate: 60 P: FL: 0 QRS: 51 QRSD: 100 T: 43 QT: 405 QTc: 405 Interpretive Statements SINUS RHYTHM NORMAL EKG COMPARED TO ECG 02/10/2022 10:26:04 NO SIGNIFICANT CHANGES Electronically Signed On 07-24-2022 18:39:13 CDT by Laurel Grady M.D.
[2022-07-23 18:00] LABS: Basophils Absolute Auto 0.05 K/mm3 (0.00-0.10); Basophils Percent Auto 0.6 % (0.0-1.0); Eosinophils Absolute Auto 0.09 K/mm3 (0.02-0.50); Hematocrit 39.8 % (35.0-42.0); Hemoglobin 12.9 g/dL (11.7-13.8); Immature Granulocyte Absolute 0.02 K/mm3 (0.00-0.00); Immature Granulocyte Percent A 0.2 % (0.0-0.0); Lymphocytes Absolute Auto 4.76 K/mm3 (1.10-4.50); Lymphocytes Percent Auto 54.3 % (18.0-42.0); Mean Corpuscular HGB Conc 32.4 g/dL (32.0-36.0); Mean Corpuscular Volume 98.8 fL (78.0-102.0); Mean Platelet Volume 9.5 fl (9.2-11.8); Monocytes Absolute Auto 0.72 K/mm3 (0.10-0.90); Monocytes Percent Auto 8.2 % (2.0-11.0); Neutrophils Absolute Auto 3.1 K/mm3 (1.7-7.2); Neutrophils Percent Auto 35.7 % (50.0-70.0); Platelet Count Result 176 K/mm3 (150-420); Red Blood Count 4.03 M/mm3 (4.20-5.40); Red Cell Distribution Width 12.6 % (11.6-14.4); White Blood Count 8.8 K/mm3 (4.8-10.8)
[2022-07-23 18:14] LABS: Partial Thromboplastin Time 27.2 SEC (23.90-30.70); Prothrombin Time 10.9 Seconds (9.50-12.10)
[2022-07-23 18:18] LABS: Alanine Aminotransferase 16 U/L (14-59); Albumin Level 3.7 g/dL (3.4-5.0); Alkaline Phosphatase 86 U/L (46-116); Anion Gap 7 mmol/L (8-16); Aspartate Amino Transferase 25 U/L (15-37); Bilirubin,Total 0.2 mg/dL (0.00-1.00); Blood Urea Nitrogen 17 mg/dL (7-18); Carbon Dioxide 28 mmol/L (21-32); Chloride 106 mmol/L (98-108); Estimated Glomerular Filt Rate 50; Glucose 86 mg/dL (70-99); Osmolality Calculated 292 mOsm/kg (285-295); Potassium 4.3 mmol/L (3.5-5.1); Sodium 141 mmol/L (136-145); Total Protein 7.5 g/dL (6.4-8.2); Troponin I 6.6 ng/L (0.00-60.4)
--- NOTE | 2022-07-23 18:30 | PC.NURSE ---
Two attempts by two different RNs unsuccessful. Will find another nurse to attempt per patient, unable to use left arm due to lumpectomy, hx of breast cancer.
--- NOTE | 2022-07-23 19:00 | PC.NURSE ---
Pt informed she must be admitted to a facility for observation. Pt very upset, tearful. Stroke scale unchanged, some loss of fluency but holding back tears at this time. at bedside, emotional support provided. Family to discuss where they would like to be transferred for neuro observation.
[2022-07-23 19:47] LABS: Appearance Urine Clear (Clear); Bilirubin Urine Negative (Negative); Blood Urine Negative (Negative); Glucose Urine UA Negative (Negative); Ketones Urine Negative (Negative); Leukocyte Esterase Ur 2+ (Negative); Nitrate Urine Positive (Negative); Protein Urine Negative (Negative); Specific Grav Ur <= 1.005 (1.010-1.020); Urobilinogen Urine 0.2 mg/dL (0.2-1.0)
[2022-07-23 19:53] LABS: Add Urine Microscopic? YES; Bacteria Urine 2+ /hpf; Color Urine Light Yellow (Yellow); RBC Urine 0-2 /hpf (0-2); Renal Epithelial Cells Urine Few /hpf
[2022-07-23 21:46] LABS: Influenza A QL RT-PCR Negative (Negative); Influenza B QL RT-PCR Negative (Negative); SARS-CoV-2 RNA PCR Negative (Negative)
[2022-07-23] MEDS: traMADol HCL (*CRX) 25 MG TABLET PO (22:08)
[2022-07-23] MEDS: CLOPIDOGREL BISULFATE 75 MG TABLET 300 MG PO (22:12)
[2022-07-23] MEDS: ASPIRIN 81 MG CHEWABLE TABLET 324 MG PO (22:14)
[2022-07-23] MEDS: LABETALOL HCL INJ 100 MG/20 ML VIAL IV PUSH (22:15)
--- NOTE | 2022-07-23 22:39 | PC.NURSE ---
RN calls ERP for orders for a connell due to frequent urination, probable ICU admission, and for strict I&O. ERP states an indwelling catheter can be placed. RN confirms order. Pt requests a female nurse for assistance with toileting.
--- NOTE | 2022-07-23 22:48 | PC.NURSE ---
Pt educated on connell and need. Pt states at this time she is going to refuse but is still thinking about the procedure.
--- NOTE | 2022-07-23 23:50 | PC.NURSE ---
Pt called for RN and asked for the indwelling catheter at this time. Female RN Priscilla goes into room to perform procedure.
[2022-07-24] VITALS (8 sets, daily range): BP systolic 167–197; BP diastolic 62–93; PULSE 72–77; RESP 12–18; TEMP 36.6; O2SAT 93–100
--- NOTE | 2022-07-24 00:41 | PC.NURSE ---
RN walked pt's to vending machines in hospital cafeteria to grab food for pt.
[2022-07-24 01:14] LABS: Glucose Point of Care 112 mg/dl (65-105)
--- NOTE | 2022-07-24 01:48 | PC.NURSE ---
RN obtains a hospital bed from the med surgery floor. Pt states she is more comfortable at this time.
--- NOTE | 2022-07-24 02:49 | PC.NURSE ---
ASSEMBLER [employer] requests for a second line to be established. RN attempts an IV with no success.
== END 2022-07-24 03:15 | disposition short-term general hospital (02) ==
PROVIDERS: Emergency Provider Internal Medicine Critical Care Medicine; PCP Internal Medicine
DX: I16.1 Hypertensive emergency (principal); G45.9 Transient cerebral ischemic attack, unspecified; E78.5 Hyperlipidemia, unspecified; K21.9 Gastro-esophageal reflux disease without esophagitis; E11.9 Type 2 diabetes mellitus without complications; Z20.822 Contact with and (suspected) exposure to COVID-19
CPT/HCPCS: 36415; 70450; 80053; 81001; 82948; 84484; 85025; 85610; 85730; 87502; 93005; 96374; 99285; A9270; C9803; U0003; U0005

== ENCOUNTER 2022-08-25 12:16 | Outpatient (CLI) | payer MEDICARE, SELFPAY ==
[2022-08-25 12:41] LABS: Basophils Absolute Auto 0.04 K/mm3 (0.00-0.10); Basophils Percent Auto 0.4 % (0.0-1.0); Eosinophils Absolute Auto 0.24 K/mm3 (0.02-0.50); Eosinophils Percent Auto 2.7 % (1.0-6.0); Hematocrit 40.2 % (35.0-42.0); Hemoglobin 12.8 g/dL (11.7-13.8); Immature Granulocyte Absolute 0.03 K/mm3 (0.00-0.00); Immature Granulocyte Percent A 0.3 % (0.0-0.0); Lymphocytes Percent Auto 18.8 % (18.0-42.0); Mean Corpuscular HGB Conc 31.8 g/dL (32.0-36.0); Mean Corpuscular Hemoglobin 31.8 pg (27.0-31.0); Mean Corpuscular Volume 99.8 fL (78.0-102.0); Mean Platelet Volume 9.7 fl (9.2-11.8); Monocytes Absolute Auto 0.67 K/mm3 (0.10-0.90); Monocytes Percent Auto 7.4 % (2.0-11.0); Neutrophils Absolute Auto 6.3 K/mm3 (1.7-7.2); Neutrophils Percent Auto 70.4 % (50.0-70.0); Platelet Count Result 190 K/mm3 (150-420); Red Blood Count 4.03 M/mm3 (4.20-5.40); Red Cell Distribution Width 12.9 % (11.6-14.4)
[2022-08-25 12:42] LABS: Add Urine Microscopic? NO; Appearance Urine Clear (Clear); Bilirubin Urine Negative (Negative); Blood Urine Negative (Negative); Color Urine Yellow (Yellow); Glucose Urine UA Negative (Negative); Ketones Urine Negative (Negative); Leukocyte Esterase Ur Negative LEU/UL (Negative); Nitrate Urine Negative (Negative); Protein Urine Negative (Negative); Specific Grav Ur 1.015 (1.010-1.020); Urobilinogen Urine 0.2 mg/dL (0.2-1.0)
[2022-08-25 13:23] LABS: Alanine Aminotransferase 26 U/L (14-59); Albumin Level 3.6 g/dL (3.4-5.0); Alkaline Phosphatase 85 U/L (46-116); Anion Gap 8 mmol/L (8-16); Aspartate Amino Transferase 21 U/L (15-37); Bilirubin,Total 0.5 mg/dL (0.00-1.00); Blood Urea Nitrogen 13 mg/dL (7-18); Calcium 8.8 mg/dL (8.5-10.1); Carbon Dioxide 29 mmol/L (21-32); Chloride 107 mmol/L (98-108); Estimated Glomerular Filt Rate 46; Glucose 213 mg/dL (70-99); Osmolality Calculated 304 mOsm/kg (285-295); Potassium 4.5 mmol/L (3.5-5.1); Sodium 144 mmol/L (136-145)
== END 2022-08-25 12:17 | disposition home or self-care (01) ==
LOC: CHSLAB 12:18
PROVIDERS: PCP Internal Medicine; Visit Provider Internal Medicine
DX: R42 Dizziness and giddiness (principal); J02.9 Acute pharyngitis, unspecified
CPT/HCPCS: 36415; 80053; 81003; 85025

== ENCOUNTER 2022-10-10 09:10 | Outpatient (CLI) | payer MEDICARE, SELFPAY ==
[2022-10-10 09:49] LABS: Hemoglobin A1C 6.8 % (<5.7)
[2022-10-10 10:00] LABS: Anion Gap 7 mmol/L (8-16); Blood Urea Nitrogen 17 mg/dL (7-18); Calcium 8.7 mg/dL (8.5-10.1); Carbon Dioxide 29 mmol/L (21-32); Chloride 105 mmol/L (98-108); Estimated Glomerular Filt Rate 51; Glucose 162 mg/dL (70-99); Osmolality Calculated 297 mOsm/kg (285-295); Potassium 4.4 mmol/L (3.5-5.1); Sodium 141 mmol/L (136-145)
== END 2022-10-10 09:11 | disposition home or self-care (01) ==
LOC: CHSLAB 09:12
PROVIDERS: PCP Internal Medicine; Visit Provider Internal Medicine
DX: E11.65 Type 2 diabetes mellitus with hyperglycemia (principal)
CPT/HCPCS: 36415; 80048; 83036

== ENCOUNTER 2022-12-16 14:00 | Outpatient (RCR) | payer MEDICARE, OTHER, SELFPAY | END 2022-12-17 23:59 | disposition home or self-care (01) | LOC: CHSSENLIFE 14:00 | PROVIDERS: PCP Internal Medicine; Visit Provider Psychiatry & Neurology Psychiatry | DX: F33.2 Major depressive disorder, recurrent severe without psychotic features (principal) | CPT/HCPCS: 90792; 90837; 99213; 99214; G0463 ==

== ENCOUNTER 2023-01-22 10:37 | Outpatient (CLI) | payer MEDICARE, OTHER, SELFPAY ==
[2023-01-22 10:57] LABS: Appearance Urine Slightly Cloudy (Clear); Basophils Absolute Auto 0.05 K/mm3 (0.00-0.10); Basophils Percent Auto 0.9 % (0.0-1.0); Bilirubin Urine Negative (Negative); Blood Urine Trace-Intact (Negative); Eosinophils Absolute Auto 0.17 K/mm3 (0.02-0.50); Eosinophils Percent Auto 3.1 % (1.0-6.0); Glucose Urine UA Trace (Negative); Hematocrit 38.4 % (35.0-42.0); Hemoglobin 12.2 g/dL (11.7-13.8); Immature Granulocyte Absolute 0.01 K/mm3 (0.00-0.00); Immature Granulocyte Percent A 0.2 % (0.0-0.0); Ketones Urine Negative (Negative); Leukocyte Esterase Ur 3+ LEU/UL (Negative); Lymphocytes Absolute Auto 2.72 K/mm3 (1.10-4.50); Lymphocytes Percent Auto 50.2 % (18.0-42.0); Mean Corpuscular HGB Conc 31.8 g/dL (32.0-36.0); Mean Corpuscular Hemoglobin 32.5 pg (27.0-31.0); Mean Corpuscular Volume 102.4 fL (78.0-102.0); Mean Platelet Volume 9.5 fl (9.2-11.8); Monocytes Absolute Auto 0.48 K/mm3 (0.10-0.90); Monocytes Percent Auto 8.9 % (2.0-11.0); Neutrophils Percent Auto 36.7 % (50.0-70.0); Nitrate Urine Positive (Negative); Platelet Count Result 189 K/mm3 (150-420); Protein Urine Trace (Negative); Red Blood Count 3.75 M/mm3 (4.20-5.40); Red Cell Distribution Width 12.1 % (11.6-14.4); Specific Grav Ur <= 1.005 (1.010-1.020); White Blood Count 5.4 K/mm3 (4.8-10.8)
[2023-01-22 11:04] LABS: Add Urine Microscopic? YES; Bacteria Urine 1+ /hpf; Color Urine Dark Yellow (Yellow); Squamous Epithelial Cell Urine Few /hpf (Few); WBC Urine >75 /hpf (0-3)
[2023-01-22 11:05] LABS: Creatinine Urine 38.04 mg/dL (40-278); MALB Creatinine Ratio 86.7 mg/g (0-30)
[2023-01-22 11:08] LABS: Hemoglobin A1C 6.9 % (<5.7)
[2023-01-22 11:52] LABS: Alanine Aminotransferase 25 U/L (14-59); Albumin Level 3.5 g/dL (3.4-5.0); Alkaline Phosphatase 89 U/L (46-116); Anion Gap 7 mmol/L (8-16); Aspartate Amino Transferase 23 U/L (15-37); Bilirubin,Total 0.5 mg/dL (0.00-1.00); Blood Urea Nitrogen 15 mg/dL (7-18); Calcium 9.1 mg/dL (8.5-10.1); Carbon Dioxide 32 mmol/L (21-32); Chloride 106 mmol/L (98-108); Cholesterol 106 mg/dL (0-200); Creatine Kinase 37 U/L (26-192); Estimated Glomerular Filt Rate 49; Free T3 2.19 pg/mL (2.18-3.98); Free T4 Free Thyroxine 0.99 ng/dL (0.76-1.46); Glucose 115 mg/dL (70-99); HDL Direct 43 mg/dL (40-60); LDL Cholesterol Calculated 50 mg/dL (<130); Osmolality Calculated 301 mOsm/kg (285-295); Potassium 4.7 mmol/L (3.5-5.1); Sodium 145 mmol/L (136-145); Thyroid Stimulating Hormone 1.08 uIU/mL (0.36-3.74); Total Protein 7.4 g/dL (6.4-8.2); Triglycerides 67 mg/dL (0-150)
[2023-01-22 11:59] LABS: Vitamin B12 > 2000 pg/mL (193-986)
== END 2023-01-22 10:38 | disposition home or self-care (01) ==
LOC: CHSLAB 10:42
PROVIDERS: PCP Internal Medicine; Visit Provider Internal Medicine
DX: R53.82 Chronic fatigue, unspecified (principal); E11.65 Type 2 diabetes mellitus with hyperglycemia; I10 Essential (primary) hypertension; E78.2 Mixed hyperlipidemia; G63 Polyneuropathy in diseases classified elsewhere; R82.90 Unspecified abnormal findings in urine
CPT/HCPCS: 36415; 80053; 80061; 81001; 82043; 82550; 82607; 83036; 84439; 84443; 84481; 85025; 87077; 87086; 87088; 87186

== ENCOUNTER 2023-05-06 09:56 | Outpatient (CLI) | payer MEDICARE, SELFPAY ==
[2023-05-06 10:23] LABS: Basophils Absolute Auto 0.06 K/mm3 (0.00-0.10); Eosinophils Absolute Auto 0.15 K/mm3 (0.02-0.50); Eosinophils Percent Auto 2.6 % (1.0-6.0); Hematocrit 39.8 % (35.0-42.0); Hemoglobin 12.9 g/dL (11.7-13.8); Immature Granulocyte Absolute 0.01 K/mm3 (0.00-0.00); Immature Granulocyte Percent A 0.2 % (0.0-0.0); Lymphocytes Absolute Auto 2.66 K/mm3 (1.10-4.50); Lymphocytes Percent Auto 45.9 % (18.0-42.0); Mean Corpuscular HGB Conc 32.4 g/dL (32.0-36.0); Mean Corpuscular Hemoglobin 32.7 pg (27.0-31.0); Mean Platelet Volume 9.5 fl (9.2-11.8); Monocytes Absolute Auto 0.56 K/mm3 (0.10-0.90); Monocytes Percent Auto 9.7 % (2.0-11.0); Neutrophils Absolute Auto 2.4 K/mm3 (1.7-7.2); Neutrophils Percent Auto 40.6 % (50.0-70.0); Platelet Count Result 188 K/mm3 (150-420); Red Blood Count 3.94 M/mm3 (4.20-5.40); Red Cell Distribution Width 12.1 % (11.6-14.4); White Blood Count 5.8 K/mm3 (4.8-10.8)
[2023-05-06 10:45] LABS: Hemoglobin A1C 6.6 % (<5.7)
[2023-05-06 11:16] LABS: Alanine Aminotransferase 22 U/L (14-59); Albumin Level 3.5 g/dL (3.4-5.0); Alkaline Phosphatase 104 U/L (46-116); Anion Gap 8 mmol/L (8-16); Aspartate Amino Transferase 15 U/L (15-37); Bilirubin,Total 0.3 mg/dL (0.00-1.00); Blood Urea Nitrogen 17 mg/dL (7-18); Carbon Dioxide 28 mmol/L (21-32); Chloride 106 mmol/L (98-108); Estimated Glomerular Filt Rate 50; Glucose 155 mg/dL (70-99); Osmolality Calculated 298 mOsm/kg (285-295); Potassium 4.5 mmol/L (3.5-5.1); Sodium 142 mmol/L (136-145); Total Protein 7.1 g/dL (6.4-8.2)
== END 2023-05-06 09:57 | disposition home or self-care (01) ==
LOC: CHSLAB 09:58
PROVIDERS: PCP Internal Medicine; Visit Provider Internal Medicine
DX: E11.42 Type 2 diabetes mellitus with diabetic polyneuropathy (principal); D72.820 Lymphocytosis (symptomatic)
CPT/HCPCS: 36415; 80053; 83036; 85025

== ENCOUNTER 2023-06-18 12:00 | Outpatient (RCR) | payer MEDICARE, OTHER, SELFPAY | END 2023-06-18 14:24 | disposition home or self-care (01) | LOC: CHSSENLIFE 12:00 | PROVIDERS: PCP Internal Medicine; Visit Provider Psychiatry & Neurology Psychiatry | DX: F33.2 Major depressive disorder, recurrent severe without psychotic features (principal) | CPT/HCPCS: 90837; 99213; G0463 ==

== ENCOUNTER 2023-06-23 09:10 | Outpatient (RCR) | payer MEDICARE, SELFPAY ==
--- NOTE | 2023-06-23 09:06 | OPREHPOC ---
Outpatient Therapy Plan of Care This is a Multidisciplinary Plan of Care that may contain components documented by all disciplines (PT, OT, and ST.) PT Problem 1 PT Problem #1 Knowledge Deficit PT Goal 1 Goal Patient to demonstrate independence with HEP Target Visit 4 PT Problem 2 PT Problem #2 Impaired Strength PT Goal 1 Goal Patient to demonstrate 4+/5 strength of B LE to improve ability to navigate steps Target Visit 8 PT Problem 3 PT Problem #3 Impaired Functional Mobil PT Goal 1 Goal 1. Patient to demonstrate ability to navigate 2 steps with step to pattern with stair navigation 2. Patient to improve Tinetti by 6 points 3. Patient to score <24 seconds on TUG to decrease fall risk within the home Target Visit 8
--- NOTE | 2023-06-23 09:06 | PTOPEVAL1 ---
Assessment and note entered by Lilian Horne DPT Evaluation Information Assessment Status Evaluation Diagnosis frequent falls Onset 06/17/23 Subjective Information Patient reports she has a history of frequent falls. She reports she is now using a standard walker as of the last 3 months. Prior she was using a cane. She reports she has not had a fall since getting the standard walker. She reports she feels like she has B LE weakness. Patient has difficulty with steps, fixing her bed, and getting off the toilet. Patient denies pain Reported Pain Level Pain Score 0: Self Report Assessment PT Clinical Summary Patient is a 83 year old female who presents to PT with reports of frequent falls. Patient demonstrates decreased LE strength, impaired gait and impaired balance impairing her ability to navigate steps, fix her bed and getting up off of a chair. Patient would benefit from skilled PT to address impairments and return to PLOF. Plan of Care Interventions Gait Training,Hot Pack/Cold Pack,Neuro Re- education,Patient/Caregiver Educati,Therapeutic Activities,Therapeutic Exercise PT Services Indicated Yes Treatment Frequency and 2x weekly for 8 visits Duration These treatments will address the objective and functional deficits as defined above. The patient will be advanced safely and appropriately in order for the patient to progress towards his/her prior level of function. Additional exercises will be introduced and as well as a comprehensive home exercise program upon discharge, if needed, ?to ensure carryover of functional gains achieved in the clinic. This treatment plan has been reviewed and agreement upon by the patient.
--- NOTE | 2023-07-23 14:32 | OPREHPOC ---
Outpatient Therapy Plan of Care This is a Multidisciplinary Plan of Care that may contain components documented by all disciplines (PT, OT, and ST.) PT Problem 1 PT Problem #1 Knowledge Deficit PT Goal 1 Goal Patient to demonstrate independence with HEP Target Visit 4 Progress Met PT Problem 2 PT Problem #2 Impaired Strength PT Goal 1 Goal Patient to demonstrate 4+/5 strength of B LE to improve ability to navigate steps Target Visit 8 Progress Met PT Problem 3 PT Problem #3 Impaired Functional Mobil PT Goal 1 Goal 1. Patient to demonstrate ability to navigate 2 steps with step to pattern with stair navigation 2. Patient to improve Tinetti by 6 points 3. Patient to score <24 seconds on TUG to decrease fall risk within the home Target Visit 8 Progress Met
--- NOTE | 2023-07-23 14:32 | PTOPDC ---
Assessment and note entered by Lilian Horne DPT Evaluation Information Assessment Status Re-evaluation Diagnosis frequent falls Onset 06/17/23 Subjective Information Patient reports that since start of PT she has gotten stronger. She reports that adding front wheels to her walker have helped her walking. She denies fall since start of PT. She reports she is not always compliant with HEP. Reported Pain Level Pain Score 0: Self Report Assessment PT Clinical Summary Mrs. Nunez was seen for 8 visits of skilled PT with all goals met. Patient has had no falls since start of PT and reports improved strength and mobility. Patient has been educated on importance of continued skilled PT and is appropriate for DC at this time. Plan of Care PT Services Indicated No
== END 2023-07-23 15:57 | disposition home or self-care (01) ==
LOC: CHSPT 09:10
PROVIDERS: PCP Internal Medicine; Visit Provider Internal Medicine
DX: R26.81 Unsteadiness on feet (principal); Z91.81 History of falling
CPT/HCPCS: 97110; 97112; 97161

== ENCOUNTER 2023-08-31 10:01 | Outpatient (CLI) | payer MEDICARE, SELFPAY ==
[2023-08-31 10:23] LABS: Appearance Urine Clear (Clear); Basophils Absolute Auto 0.06 K/mm3 (0.00-0.10); Bilirubin Urine Negative (Negative); Blood Urine Negative (Negative); Color Urine Light Yellow (Yellow); Eosinophils Absolute Auto 0.14 K/mm3 (0.02-0.50); Eosinophils Percent Auto 2.3 % (1.0-6.0); Glucose Urine UA Negative (Negative); Hematocrit 38.1 % (35.0-42.0); Hemoglobin 12.6 g/dL (11.7-13.8); Immature Granulocyte Absolute 0.02 K/mm3 (0.00-0.00); Immature Granulocyte Percent A 0.3 % (0.0-0.0); Ketones Urine Negative (Negative); Leukocyte Esterase Ur 1+ (Negative); Lymphocytes Absolute Auto 2.26 K/mm3 (1.10-4.50); Lymphocytes Percent Auto 36.5 % (18.0-42.0); Mean Corpuscular HGB Conc 33.1 g/dL (32.0-36.0); Mean Corpuscular Hemoglobin 33.1 pg (27.0-31.0); Monocytes Percent Auto 8.1 % (2.0-11.0); Neutrophils Absolute Auto 3.2 K/mm3 (1.7-7.2); Neutrophils Percent Auto 51.8 % (50.0-70.0); Nitrate Urine Negative (Negative); Platelet Count Result 220 K/mm3 (150-420); Protein Urine Negative (Negative); Red Blood Count 3.81 M/mm3 (4.20-5.40); Red Cell Distribution Width 12.2 % (11.6-14.4); Urobilinogen Urine 0.2 mg/dL (0.2-1.0); White Blood Count 6.2 K/mm3 (4.8-10.8)
[2023-08-31 10:30] LABS: Add Urine Microscopic? YES; RBC Urine None seen /hpf (0-2); Squamous Epithelial Cell Urine Few /hpf (Few)
[2023-08-31 10:31] LABS: Bacteria Urine 1+ /hpf; Hemoglobin A1C 7.3 % (<5.7)
[2023-08-31 11:16] LABS: Alanine Aminotransferase 24 U/L (14-59); Albumin Level 3.4 g/dL (3.4-5.0); Alkaline Phosphatase 91 U/L (46-116); Anion Gap 7 mmol/L (8-16); Aspartate Amino Transferase 16 U/L (15-37); Bilirubin,Total 0.4 mg/dL (0.00-1.00); Blood Urea Nitrogen 23 mg/dL (7-18); Calcium 9.1 mg/dL (8.5-10.1); Carbon Dioxide 32 mmol/L (21-32); Chloride 102 mmol/L (98-108); Cholesterol 114 mg/dL (0-200); Creatine Kinase 37 U/L (26-192); Estimated Glomerular Filt Rate 41; Free T4 Free Thyroxine 0.93 ng/dL (0.76-1.46); Glucose 150 mg/dL (70-99); HDL Direct 47 mg/dL (40-60); LDL Cholesterol Calculated 49 mg/dL (<130); Osmolality Calculated 298 mOsm/kg (285-295); Potassium 4.4 mmol/L (3.5-5.1); Sodium 141 mmol/L (136-145); Thyroid Stimulating Hormone 1.17 uIU/mL (0.36-3.74); Triglycerides 90 mg/dL (0-150); Vitamin B12 1569 pg/mL (193-986)
== END 2023-08-31 10:02 | disposition home or self-care (01) ==
LOC: CHSLAB 10:03
PROVIDERS: PCP Internal Medicine; Visit Provider Internal Medicine
DX: E11.29 Type 2 diabetes mellitus with other diabetic kidney complication (principal); I10 Essential (primary) hypertension; G63 Polyneuropathy in diseases classified elsewhere; E78.2 Mixed hyperlipidemia; N39.0 Urinary tract infection, site not specified
CPT/HCPCS: 36415; 80053; 80061; 81001; 82550; 82607; 83036; 84439; 84443; 85025; 87077; 87086; 87088; 87186

== ENCOUNTER 2023-09-16 16:45 | Outpatient (CLI) | payer MEDICARE, SELFPAY ==
--- NOTE | ~2023-09-16 | XR_ITS ---
EXAMINATION: XR chest 2V Exam Date/Time: 09/16/2023 17:15 SWEATBAND PERFORATOR HISTORY: Dyspnea/chronic cough X 2 WEEKS Comparison: 10/04/2019. RESULT: Lines, tubes, and devices: Left axillary surgical clips. Lungs and pleura: Senescent and possible emphysematous change. Minimal streaky bibasilar scar/atelec tasis. Cardiomediastinal silhouette: Stable. Other: No acute osseous or upper abdominal finding. IMPRESSION: No acute cardiopulmonary process. Reviewed, dictated and finalized at location K. TBAND PERFORATOR
[2023-09-16 17:27] LABS: NT Pro B Type Natriuretic Pept 339 pg/mL (0-450)
== END 2023-09-16 16:46 | disposition home or self-care (01) ==
LOC: CHSLAB 16:47
PROVIDERS: PCP Internal Medicine; Visit Provider Internal Medicine
DX: R06.00 Dyspnea, unspecified (principal); R05.9 Cough, unspecified
CPT/HCPCS: 36415; 71046; 83880

== ENCOUNTER 2024-01-26 09:25 | Outpatient (CLI) | payer MEDICARE, SELFPAY ==
[2024-01-26 09:43] LABS: Basophils Absolute Auto 0.06 K/mm3 (0.00-0.10); Basophils Percent Auto 0.9 % (0.0-1.0); Eosinophils Absolute Auto 0.13 K/mm3 (0.02-0.50); Eosinophils Percent Auto 1.9 % (1.0-6.0); Hematocrit 39.2 % (35.0-42.0); Hemoglobin 12.8 g/dL (11.7-13.8); Immature Granulocyte Absolute 0.01 K/mm3 (0.00-0.00); Immature Granulocyte Percent A 0.1 % (0.0-0.0); Lymphocytes Percent Auto 44.9 % (18.0-42.0); Mean Corpuscular HGB Conc 32.7 g/dL (32-36); Mean Corpuscular Hemoglobin 32.2 pg (27.0-31.0); Mean Corpuscular Volume 98.7 fL (78.0-102.0); Mean Platelet Volume 9.2 fl (9.2-11.8); Monocytes Absolute Auto 0.66 K/mm3 (0.10-0.90); Monocytes Percent Auto 9.9 % (2.0-11.0); Neutrophils Absolute Auto 2.82 K/mm3 (1.70-7.20); Neutrophils Percent Auto 42.3 % (50.0-70.0); Platelet Count Result 189 K/mm3 (150-420); Red Blood Count 3.97 M/mm3 (4.20-5.40); Red Cell Distribution Width 12.3 % (11.6-14.4); White Blood Count 6.7 K/mm3 (4.8-10.8)
[2024-01-26 10:06] LABS: Appearance Urine Sl Cloudy (Clear); Bilirubin Urine Negative (Negative); Blood Urine Negative (Negative); Color Urine Light Yellow (Yellow); Glucose Urine UA Negative (Negative); Ketones Urine Negative (Negative); Leukocyte Esterase Ur 2+ LEU/UL (Negative); Nitrate Urine Negative (Negative); Protein Urine Negative (Negative)
[2024-01-26 10:20] LABS: Add Urine Microscopic? YES; Bacteria Urine 3+ /hpf; RBC Urine None seen /hpf (0-2); Squamous Epithelial Cell Urine Many /hpf (Few)
[2024-01-26 10:21] LABS: Hemoglobin A1C 6.5 % (<5.7)
[2024-01-26 10:29] LABS: Alanine Aminotransferase 23 U/L (14-59); Albumin Level 3.7 g/dL (3.4-5.0); Alkaline Phosphatase 91 U/L (46-116); Anion Gap 6 mmol/L (4-12); Aspartate Amino Transferase 18 U/L (15-37); Bilirubin,Total 0.3 mg/dL (0.00-1.00); Blood Urea Nitrogen 18 mg/dL (7-18); Calcium 8.9 mg/dL (8.5-10.1); Carbon Dioxide 33 mmol/L (21-32); Chloride 103 mmol/L (98-108); Cholesterol 118 mg/dL (0-200); Creatine Kinase 43 U/L (26-192); Estimated Glomerular Filt Rate 46; Glucose 92 mg/dL (70-99); HDL Direct 45 mg/dL (40-60); LDL Cholesterol Calculated 51 mg/dL (<130); Osmolality Calculated 295 mOsm/kg (285-295); Potassium 4.4 mmol/L (3.5-5.1); Sodium 142 mmol/L (136-145); Total Protein 7.3 g/dL (6.4-8.2); Triglycerides 109 mg/dL (0-150)
== END 2024-01-26 09:26 | disposition home or self-care (01) ==
LOC: CHSLAB 09:28
PROVIDERS: PCP Internal Medicine; Visit Provider Internal Medicine
DX: E11.65 Type 2 diabetes mellitus with hyperglycemia (principal); I10 Essential (primary) hypertension; E78.2 Mixed hyperlipidemia; N39.0 Urinary tract infection, site not specified; R82.90 Unspecified abnormal findings in urine
CPT/HCPCS: 36415; 80053; 80061; 81001; 82550; 83036; 85025; 87086; 87088

== ENCOUNTER 2024-05-10 09:26 | Outpatient (CLI) | payer MEDICARE, SELFPAY ==
[2024-05-10 09:48] LABS: Hematocrit 39.8 % (35.0-42.0); Hemoglobin 12.9 g/dL (11.7-13.8); Mean Corpuscular HGB Conc 32.4 g/dL (32-36); Mean Corpuscular Hemoglobin 32.3 pg (27.0-31.0); Mean Corpuscular Volume 99.5 fL (78.0-102.0); Mean Platelet Volume 9.5 fl (9.2-11.8); Platelet Count Result 186 K/mm3 (150-420); Red Cell Distribution Width 11.6 % (11.6-14.4); White Blood Count 6.8 K/mm3 (4.8-10.8)
[2024-05-10 09:53] LABS: Appearance Urine Clear (Clear); Bilirubin Urine Negative (Negative); Blood Urine Negative (Negative); Color Urine Light Yellow (Yellow); Glucose Urine UA Negative (Negative); Ketones Urine Negative (Negative); Leukocyte Esterase Ur 2+ (Negative); Nitrate Urine Negative (Negative); Protein Urine Negative (Negative); Specific Grav Ur 1.015 (1.010-1.020); Urobilinogen Urine 0.2 mg/dL (0.2-1.0)
[2024-05-10 09:59] LABS: Hemoglobin A1C 6.8 % (<5.7)
[2024-05-10 10:15] LABS: Add Urine Microscopic? YES; Bacteria Urine 4+ /hpf; RBC Urine None seen /hpf (0-2); Squamous Epithelial Cell Urine Many /hpf (Few); WBC Urine 21-30 /hpf (0-3)
[2024-05-10 11:01] LABS: Alanine Aminotransferase 12 U/L (14-59); Albumin Level 3.4 g/dL (3.4-5.0); Alkaline Phosphatase 94 U/L (46-116); Anion Gap 7 mmol/L (4-12); Aspartate Amino Transferase 14 U/L (15-37); Bilirubin,Total 0.3 mg/dL (0.00-1.00); Blood Urea Nitrogen 23 mg/dL (7-18); Calcium 8.9 mg/dL (8.5-10.1); Carbon Dioxide 30 mmol/L (21-32); Chloride 107 mmol/L (98-108); Cholesterol 112 mg/dL (0-200); Creatine Kinase 40 U/L (26-192); Estimated Glomerular Filt Rate 43; Free T3 1.82 pg/mL (2.18-3.98); Glucose 128 mg/dL (70-99); HDL Direct 42 mg/dL (40-60); LDL Cholesterol Calculated 50 mg/dL (<130); Osmolality Calculated 303 mOsm/kg (285-295); Potassium 4.1 mmol/L (3.5-5.1); Sodium 144 mmol/L (136-145); Thyroid Stimulating Hormone 1.31 uIU/mL (0.36-3.74); Triglycerides 100 mg/dL (0-150); Vitamin B12 > 2000 pg/mL (193-986)
[2024-05-10 12:00] LABS: Creatinine Urine 98.39 mg/dL (40-278); MALB Creatinine Ratio 22.9 mg/g (0-30); Microalbumin Urine Random 22.6 mg/L
[2024-05-10 12:10] LABS: Free T4 Free Thyroxine 0.92 ng/dL (0.76-1.46)
== END 2024-05-10 09:27 | disposition home or self-care (01) ==
LOC: CHSLAB 09:28
PROVIDERS: PCP Internal Medicine; Visit Provider Internal Medicine
DX: I10 Essential (primary) hypertension (principal); E78.2 Mixed hyperlipidemia; E11.65 Type 2 diabetes mellitus with hyperglycemia; D72.820 Lymphocytosis (symptomatic); G63 Polyneuropathy in diseases classified elsewhere; R53.82 Chronic fatigue, unspecified; N39.0 Urinary tract infection, site not specified
CPT/HCPCS: 36415; 80053; 80061; 81001; 82043; 82550; 82607; 83036; 84439; 84443; 84481; 85027; 87077; 87086; 87088; 87181

== ENCOUNTER 2024-05-26 15:14 | Outpatient (CLI) | payer MEDICARE, SELFPAY ==
[2024-05-26 15:29] LABS: Add Urine Microscopic? YES; Bilirubin Urine Negative (Negative); Blood Urine Negative (Negative); Color Urine Light Yellow (Yellow); Glucose Urine UA Negative (Negative); Ketones Urine Negative (Negative); Leukocyte Esterase Ur 2+ (Negative); Nitrate Urine Negative (Negative); Protein Urine Negative (Negative); Specific Grav Ur 1.015 (1.010-1.020)
[2024-05-26 15:36] LABS: Appearance Urine Cloudy (Clear); RBC Urine None seen /hpf (0-2); Squamous Epithelial Cell Urine Moderate /hpf (Few)
[2024-05-26 15:37] LABS: Bacteria Urine 2+ /hpf
== END 2024-05-26 15:15 | disposition home or self-care (01) ==
LOC: CHSLAB 15:15
PROVIDERS: PCP Internal Medicine; Visit Provider Internal Medicine
DX: R30.0 Dysuria (principal); N39.0 Urinary tract infection, site not specified
CPT/HCPCS: 81001; 87077; 87086; 87088; 87181

== ENCOUNTER 2024-08-31 10:03 | Outpatient (CLI) | payer MEDICARE, SELFPAY ==
[2024-08-31 10:25] LABS: Add Urine Microscopic? YES; Appearance Urine Sl Cloudy (Clear); Bilirubin Urine Negative (Negative); Blood Urine Negative (Negative); Color Urine Light Yellow (Yellow); Glucose Urine UA Negative (Negative); Ketones Urine Negative (Negative); Leukocyte Esterase Ur 1+ (Negative); Nitrate Urine Negative (Negative); Protein Urine Negative (Negative); Urobilinogen Urine 0.2 mg/dL (0.2-1.0)
[2024-08-31 10:30] LABS: Bacteria Urine 2+ /hpf; RBC Urine None seen /hpf (0-2); Squamous Epithelial Cell Urine Moderate /hpf (Few)
[2024-08-31 10:42] LABS: Hemoglobin A1C 6.6 % (<5.7)
[2024-08-31 10:56] LABS: Anion Gap 10 mmol/L (4-12); Blood Urea Nitrogen 19 mg/dL (7-18); Calcium 9.5 mg/dL (8.5-10.1); Carbon Dioxide 30 mmol/L (21-32); Chloride 102 mmol/L (98-108); Estimated Glomerular Filt Rate 42; Glucose 133 mg/dL (70-99); Osmolality Calculated 298 mOsm/kg (285-295); Potassium 4.3 mmol/L (3.5-5.1); Sodium 142 mmol/L (136-145)
== END 2024-08-31 10:04 | disposition home or self-care (01) ==
PROVIDERS: PCP Internal Medicine; Visit Provider Internal Medicine
DX: E11.9 Type 2 diabetes mellitus without complications (principal); R82.81 Pyuria
CPT/HCPCS: 36415; 80048; 81001; 83036; 87077; 87086; 87088; 87181

== ENCOUNTER 2024-12-12 09:56 | Outpatient (CLI) | payer MEDICARE, SELFPAY ==
[2024-12-12 10:23] LABS: Basophils Absolute Auto 0.07 K/mm3 (0.00-0.10); Eosinophils Absolute Auto 0.21 K/mm3 (0.02-0.50); Eosinophils Percent Auto 2.9 % (1.0-6.0); Hematocrit 38.6 % (35.0-42.0); Hemoglobin 12.4 g/dL (11.7-13.8); Immature Granulocyte Absolute 0.02 K/mm3 (0.00-0.00); Immature Granulocyte Percent A 0.3 % (0.0-0.0); Lymphocytes Absolute Auto 2.24 K/mm3 (1.10-4.50); Mean Corpuscular HGB Conc 32.1 g/dL (32-36); Mean Corpuscular Hemoglobin 31.6 pg (27.0-31.0); Mean Corpuscular Volume 98.2 fL (78.0-102.0); Mean Platelet Volume 9.4 fl (9.2-11.8); Monocytes Absolute Auto 0.53 K/mm3 (0.10-0.90); Monocytes Percent Auto 7.3 % (2.0-11.0); Neutrophils Absolute Auto 4.16 K/mm3 (1.70-7.20); Neutrophils Percent Auto 57.5 % (50.0-70.0); Platelet Count Result 168 K/mm3 (150-420); Red Blood Count 3.93 M/mm3 (4.20-5.40); Red Cell Distribution Width 12.3 % (11.6-14.4); White Blood Count 7.2 K/mm3 (4.8-10.8)
[2024-12-12 10:24] LABS: Add Urine Microscopic? YES; Appearance Urine Clear (Clear); Bilirubin Urine Negative (Negative); Blood Urine Negative (Negative); Color Urine Light Yellow (Yellow); Glucose Urine UA Negative (Negative); Ketones Urine Negative (Negative); Leukocyte Esterase Ur 1+ (Negative); Nitrate Urine Negative (Negative); Protein Urine Negative (Negative); Urobilinogen Urine 0.2 mg/dL (0.2-1.0)
[2024-12-12 10:39] LABS: Hemoglobin A1C 6.6 % (<5.7)
[2024-12-12 11:09] LABS: Alanine Aminotransferase 24 U/L (14-59); Albumin Level 3.5 g/dL (3.4-5.0); Alkaline Phosphatase 102 U/L (46-116); Anion Gap 11 mmol/L (4-12); Aspartate Amino Transferase 19 U/L (15-37); Bilirubin,Total 0.3 mg/dL (0.00-1.00); Blood Urea Nitrogen 23 mg/dL (7-18); Calcium 9.1 mg/dL (8.5-10.1); Carbon Dioxide 31 mmol/L (21-32); Chloride 101 mmol/L (98-108); Cholesterol 149 mg/dL (0-200); Creatine Kinase 51 U/L (26-192); Estimated Glomerular Filt Rate 39; Free T4 Free Thyroxine 1.01 ng/dL (0.76-1.46); Glucose 158 mg/dL (70-99); HDL Direct 52 mg/dL (40-60); LDL Cholesterol Calculated 76 mg/dL (<130); Osmolality Calculated 302 mOsm/kg (285-295); Potassium 4.5 mmol/L (3.5-5.1); Sodium 143 mmol/L (136-145); Thyroid Stimulating Hormone 1.48 uIU/mL (0.36-3.74); Total Protein 7.3 g/dL (6.4-8.2); Triglycerides 105 mg/dL (0-150); Vitamin B12 1349 pg/mL (193-986)
[2024-12-12 11:19] LABS: Bacteria Urine 2+ /hpf; RBC Urine 0-2 /hpf (0-2); Squamous Epithelial Cell Urine Rare /hpf (Few)
[2024-12-12 11:24] LABS: Free T3 1.01 pg/mL (2.18-3.98)
[2024-12-12 15:03] LABS: Creatinine Urine 28.95 mg/dL (40-278); MALB Creatinine Ratio 44.9 mg/g (0-30); Microalbumin Urine Random < 13.0 mg/L
== END 2024-12-12 09:57 | disposition home or self-care (01) ==
LOC: CHSLAB 09:59
PROVIDERS: PCP Internal Medicine; Visit Provider Internal Medicine
DX: R53.82 Chronic fatigue, unspecified (principal); I10 Essential (primary) hypertension; E78.2 Mixed hyperlipidemia; E11.42 Type 2 diabetes mellitus with diabetic polyneuropathy; E86.0 Dehydration; R82.81 Pyuria
CPT/HCPCS: 36415; 80053; 80061; 81001; 82043; 82550; 82607; 83036; 84439; 84443; 84481; 85025; 87086

== ENCOUNTER 2025-09-28 10:32 | Outpatient (CLI) | payer MEDICARE, SELFPAY ==
--- OUTSIDE RECORDS SUMMARY | 2024-09-22 09:50 | XMS_ITS ---
Author Organization [facility] Address [address] [place], [place] [id number] Care Team Providers Care License Issuer Name Role Phone DINAH GAINES Unavailable [phone] May Anand Unavailable Unavailable BERENICE MILNER Unavailable [phone] Allergies Allergen (clinical drug ingredient) Drug/Non Drug Allergy documented on EMR Reaction Allergy Type Onset Date Status Substance with sulfonamide structure and antibacterial mechanism of action (substance) Product containing sulfonamide (product) (uncoded) Unknown Allergy 10/06/2017 active Substance with penicillin structure and antibacterial mechanism of action (substance) Penicillins Unknown Drug Allergy 10/06/2017 active REASON FOR VISIT *General care Encounters Encounter Location Date Provider Diagnosis [address] [id number] 09/22/2024 BERENICE MILNER Other hammer toe(s) (acquired), right foot M20.41 ; Tinea unguium B35.1 ; Other hammer toe(s) (acquired), left foot M20.42 ; Pain in right toe(s) M79.674 ; Pain in left toe(s) M79.675 ; 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 The patient was given education about shoe recommendations specific for the condition. The patient was educated about custom orthotics and how appropriate shoes and orthotics can prevent further worsening of the deformity. The patient was educated about how bad shoe habits can worsen the condition. NSAIDS, P.T., injections and other conservative treatments were discussed. Both surgical and non surgical treatments were discussed, but conservative options were emphasized. 09/22/2024 Tinea unguium (ICD-10 - B35.1) Aseptic debridement of elongated thickened nails x 10 using sterile nippers, nails were debrided in length and thickness by 30% utilizing a nail nipper without incident. The patient was educated regarding all treatment options that include topical and oral antifungal treatments. I discussed the options of taking a sample of the nail to confirm diagnosis. Nail clippings were not sent for pathology analysis. The patient was educated why and how the fungal infection evolved in their feet and the patient was given information regarding how to prevent further infection. The patient was told to keep feet dry and change socks. The patient was told to be careful with old shoes and excessive sweating. The patient was educated regarding both OTC and prescription treatments. 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 After removal of overlying extensive hyperkeratosis, healthy tissue was noted and care was taken to assure that no undermining or probing was present. It should be noted that no probing was noted and no infection or drainage was noted. Plan Of Treatment Treatment Notes Assessment Notes Other hammer toe(s) (acquired), right fo ot The patient was educated regarding how to mechanically stabilize their deformity. The patient was given education about shoe recommendations specific for the condition. The patient was educated about custom orthotics and how appropriate shoes and orthotics can prevent further worsening of the deformity. The patient was educated about how bad shoe habits can worsen the condition. NSAIDS, P.T., injections and other conservative treatments were discussed. Both surgical and non surgical treatments were discussed, but conservative options were emphasized. Tinea unguium Aseptic debridement of elongated thickened nails x 10 using sterile nippers, nails were debrided in length and thickness by 30% utilizing a nail nipper without incident. The patient was educated regarding all treatment options that include topical and oral antifungal treatments. I discussed the options of taking a sample of the nail to confirm diagnosis. Nail clippings were not sent for pathology analysis. The patient was educated why and how the fungal infection evolved in their feet and the patient was given information regarding how to prevent further infection. The patient was told to keep feet dry and change socks. The patient was told to be careful with old shoes and excessive sweating. The patient was educated regarding both OTC and prescription treatments. 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 After removal of overlying extensive hyperkeratosis, healthy tissue was noted and care was taken to assure that no undermining or probing was present. It should be noted that no probing was noted and no infection or drainage was noted. Next Appt Details Follow Up: 3 Months, Reason: Provider Name:GANESH ESTRADA, 10/26/2025 02:20:00 PM, [address] [place] [address], [id number], History and Physical Notes * HPI (History of Present Illness) Category Sub-Category Detail Notes Category Not es HPI General care Patient presents to the office for diabetic foot care. Patient states that their nails are thickened, elongated and painful. Patient states that it is aggravated by shoe gear. Onset is gradual., Patient denies taking prescription blood thinners but does take a daily aspirin., Date last seen by Dr. Anand was 09/2024., Initials [facility] Examination Category Sub-Category Detail Notes Category Not es Physical Examination Vascular: Dorsalis Pedis pulse noted at 1/4 right foot and 1/4 left foot and Posterior Tibial pulse noted at 1/4 right foot and 1/4 left foot, Capillary refill times noted to be less than three seconds x ten, Temperature gradient noted to be warm to cool to bilateral foot, pedal hair present to bilateral foot and no varicosities are noted Dermatologic: there are no open lesions, no signs of active clinical infection, no erythema noted, no ecchymoses, nails are elongated thickened and dystrophic with subungual debris x ten, hyperkeratotic tissue plantar medial hallux bilateral foot Musculoskeletal: there is pain to palpation onto nail plate x ten, no calf pain noted bilaterally, arch height noted at 2/5 non-weight bearing bilaterally, first metatarsophalangeal joint range of motion 30 deg non-weight bearing bilaterally, flexible fifth digit hammer toe deformity noted to bilateral foot reducible with kelikian push up test Neurology: protective sensation intact to light touch bilateral digits one through five, vibratory sensation intact to first metatarsophalangeal joint bilaterally Progress Notes * MICHELLE BOTELLODOB:1940 (85 yo F)Acc No.[id number]:09/22/2024 Patient: MICHELLE FORD Provider: Vanessa MILNER :1940 A ge:84 Y S ex:Female Date:09/22/2024 Address:[address] [place], [place] [id number] Subjective: * Chief Complaints: * * General care * HPI: H PI: General care P atient presents to the office for diabetic foot care. Patient states that their nails are thickened, elongated and painful. Patient states that it is aggravated by shoe gear. Onset is gradual., Patient denies taking prescription blood thinners but does take a daily aspirin., Date last seen by Dr. Anand was 09/2024., Initials [facility]. * ROS: G eneral / Constitutional: Patient denies w eakness. R espiratory: Patient denies c hronic cough, shortness of breath, sputum production. C ardiovascular: Patient denies c hest pain, history of NV, irregular heartbeat. M usculoskeletal: Patient complains of h ammertoes. P eripheral Vascular: Patient denies b lanching of skin, cold extremities, decreased sensation in extremities. S kin: Patient complains of f ungal nails, nail changes. ? N eurologic: Patient denies d izziness, gait abnormality, headache. * Allergies: P roduct containing sulfonamide (product): Allergy - Onset Date 10/06/2017Penicillins: Allergy - Onset Date 10/06/2017 Objective: * Examination: P hysical Examination: V ascular: Dorsalis Pedis pulse noted at 1/4 right foot and 1/4 left foot and Posterior Tibial pulse noted at 1/4 right foot and 1/4 left foot, Capillary refill times noted to be less than three seconds x ten, Temperature gradient noted to be warm to cool to bilateral foot, pedal hair present to bilateral foot and no varicosities are noted Dermatologic: there are no open lesions, no signs of active clinical infection, no erythema noted, no ecchymoses, nails are elongated thickened and dystrophic with subungual debris x ten, hyperkeratotic tissue plantar medial hallux bilateral foot Musculoskeletal: there is pain to palpation onto nail plate x ten, no calf pain noted bilaterally, arch height noted at 2/5 non-weight bearing bilaterally, first metatarsophalangeal joint range of motion 30 deg non-weight bearing bilaterally, flexible fifth digit hammer toe deformity noted to bilateral foot reducible with kelikian push up test Neurology: protective sensation intact to light touch bilateral digits one through five, vibratory sensation intact to first metatarsophalangeal joint bilaterally. Assessment: * Assessment: 1. T inea unguium - B35.1 (Primary) 2 . O ther hammer toe(s) (acquired), right foot - M20.41 3 . O ther hammer toe(s) (acquired), left foot - M20.42 ? 4 . P ain in right toe(s) - M79.674 5 . P ain in left toe(s) - M79.675 6 . 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 A cquired keratosis [keratoderma] palmaris et plantaris - L85.1 Plan: * Treatment: 2. O ther hammer toe(s) (acquired), right foot Notes: The patient was educated regarding how to mechanically stabilize their deformity. The patient was given education about shoe recommendations specific for the condition. The patient was educated about custom orthotics and how appropriate shoes and orthotics can prevent further worsening of the deformity. The patient was educated about how bad shoe habits can worsen the condition. NSAIDS, P.T., injections and other conservative treatments were discussed. Both surgical and non surgical treatments were discussed, but conservative options were emphasized. 3. U nspecified atherosclerosis of seminole arteries of extremities, bilateral legs Notes: Patient educated on risks and aggravating factors of PVD, including conservative treatment options such as a diet and exercise regimen to aid in slowing progression of vascular disease ? 4. A cquired keratosis [keratoderma] palmaris et plantaris Notes: Pre-ulcerative keratoderma debrided sharply down to the level of healthy tissue using a 15 blade. After removal of overlying extensive hyperkeratosis, healthy tissue was noted and care was taken to assure that no undermining or probing was present. It should be noted that no probing was noted and no infection or drainage was noted. * Follow Up: 3 Months Billing Information: * Visit Code: 51326 Office Visit, Est Pt., Level 3. * Procedure Codes: * Electronic signature of SHARONA MILNER DPM on 09/28/2025 at 11:24 AM WAREHOUSE OPERATOR Sign off status: Pending * Provider: Vanessa MILNER Date: 11/23/2023 Generated for Daniel aguilar/Eleni/Angi on: 11/29/2024 11:24 AM WAREHOUSE OPERATOR
--- OUTSIDE RECORDS SUMMARY | 2024-12-29 09:30 | XMS_ITS ---
Author Organization [facility] Address [address] [place], [place] [id number] Care Team Providers Care [facility] Name Role Phone DINAH GAINES Unavailable [phone] May Anand Unavailable Unavailable Allergies Allergen (clinical drug ingredient) Drug/Non Drug Allergy documented on EMR Reaction Allergy Type Onset Date Status Substance with sulfonamide structure and antibacterial mechanism of action (substance) Product containing sulfonamide (product) (uncoded) Unknown Allergy 10/06/2017 active Substance with penicillin structure and antibacterial mechanism of action (substance) Penicillins Unknown Drug Allergy 10/06/2017 active REASON FOR VISIT Patient presents for at-risk foot care . The patient has painful toenails and calluses that are causing difficulty with ambulation and shoegear. The onset is gradual Encounters Encounter Location Date Provider Diagnosis [address] [id number] 12/29/2024 DINAH GAINES Tinea unguium B35.1 ; Acquired keratosis [keratoderma] palmaris et plantaris L85.1 ; Atherosclerosis of [place] arteries of extremities with intermittent claudication, bilateral legs I70.213 ; Pain in right foot M79.671 and Pain in left foot M79.672 Assessments Encounter Date Diagnosis (ICD Code) Assessment Notes Treatment Notes Treatment Clinical Notes Section Notes 12/29/2024 Tinea unguium (ICD-10 - B35.1) Nails 1-5 Bilateral were debrided extensively with nail nippers and emery board, reducing length and girth to pink healthy tissue with any subungual debris and necrotic tissue removed 12/29/2024 Acquired keratosis [keratoderma] palmaris et plantaris (ICD-10 - L85.1) A total of 1 corns or calluses, as described in the note above, were cut and pared utilizing a #15 blade 12/29/2024 Atherosclerosis of gulkana arteries of extremities with intermittent claudication, bilateral legs (ICD-10 - I70.213) 12/29/2024 Pain in right foot (ICD-10 - M79.671) 12/29/2024 Pain in left foot (ICD-10 - M79.672) Plan Of Treatment Treatment Notes Assessment Notes Tinea unguium Nails 1-5 Bilateral were debrided extensively with nail nippers and emery board, reducing length and girth to pink healthy tissue with any subungual debris and necrotic tissue removed Acquired keratosis [keratode rma] palmaris et plantaris A total of 1 corns or calluses, as described in the note above, were cut and pared utilizing a #15 blade Next Appt Details Follow Up: 10 - 12 weeks, Re ason: At-Risk Foot care, sooner if problems develop. Provider Name:GANESH ESTRADA, 10/26/2025 02:20:00 PM, [address] [place] [address], [id number], History and Physical Notes * HPI (History [...] Date last seen by Dr. Anand was 12/2024., Initials [facility] Examination Category Sub-Category Detail Notes Category Not es Dermatologic Skin findings: Skin is thin, at rophic and lacking pedal hair Nail pathology: Nails 1, 2, 3, 4, an d 5 bilateral are elongated, thick, discolored, and dystrophic with subungual debris. They are painful to palpation Hypertrophic / hyperkeratotic lesion: pl mercedes aspect of the right 5th metatarsal head Neurologic Gross sensation Grossly intact t o light touch. There is negative Tinel's sign Vascular Dorsalis pedis pulse: 1/4 bilateral Edema: No edema bilateral Capillary refill: greater than 3 secon ds Posterior tibial pulse: 0/4 bilateral Physical Examination General appearance: Alert, pleasant, well-nourished and in no acute distress Musculoskeletal Muscle Strength Muscle strength is 5/5 in regards to dorsiflexion, plantarflexion, inversion, and eversion in bilateral lower extremities Progress Notes * MICHELLE BOTELLODOB:1940 (85 yo F)Acc No.[id number]:12/29/2024 Patient: MICHELLE FORD Provider: Ricci Gaines DPM :1940 A ge:84 Y S ex:Female Date:12/29/2024 Address:[address] [place], [place] [id number] Subjective: * Chief Complaints: * Cristina victoria presents for at-risk foot care . The patient has painful toenails and calluses that are causing difficulty with ambulation and shoegear. The onset is gradual * HPI: H PI: General care Cristina victoria presents to the office for diabetic foot care. Patient states that their nails are thickened, elongated and painful. Patient states that it is aggravated by shoe gear. Onset is gradual., Patient denies taking prescription blood thinners but does take a daily aspirin., Date last seen by Dr. Anand was 12/2024., Initials [facility]. * ROS: G eneral / Constitutional: Patient denies c hills, fever, weight loss. ? M usculoskeletal: Patient denies w eakness, broken foot bone. ? P eripheral Vascular: Patient denies p ain / cramping in legs after exertion, ulceration of feet. S kin: Patient complains of f ungal nails, calluses and corns.? N eurologic: Patient denies b alance difficulty, confusion, difficulty speaking, dizziness. * Medications: N one * Allergies: P roduct containing sulfonamide (product): Allergy - Onset Date 10/06/2017Penicillins: Allergy - Onset Date 10/06/2017yesAllergies Verified. Objective: * Examination: P hysical Examination: General appearance: A lert, pleasant, well-nourished and in no acute distress. D ermatologic: Skin findings: S kin is thin, atrophic and lacking pedal hair. Hypertrophic / hyperkeratotic lesion: p lantar aspect of the right 5th metatarsal head. Nail pathology: N ails 1, 2, 3, 4, and 5 bilateral are elongated, thick, discolored, and dystrophic with subungual debris. They are painful to palpation. ? V ascular: Dorsalis pedis pulse: 1 /4 b ilateral. Posterior tibial pulse: 0 /4 bilateral. Capillary refill: g reater than 3 seconds. Edema: N o edema bilateral. N eurologic: Gross sensation G rossly intact to light touch. There is negative Tinel's sign. M usculoskeletal: Muscle Strength M uscle strength is 5/5 in regards to dorsiflexion, plantarflexion, inversion, and eversion in bilateral lower extremities. ? Assessment: * Assessment: 1. T inea unguium - B35.1 (Primary) 2 . 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 P ain in right foot - M79.671 5 . P ain in left foot - M79.672 Plan: * Treatment: 2. A cquired keratosis [keratoderma] palmaris et plantaris Notes: A total of 1 corns or calluses, as described in the note above, were cut and pared utilizing a #15 blade * Follow Up: 1 0 - 12 weeks (Reason: At-Risk Foot care, sooner if problems develop.) Billing Information: * Visit Code: 65927 Office Visit, Est Pt., Level 3. * Procedure Codes: * Electronic signature of DINAH GAINES DPM on 09/28/2025 at 11:23 AM EQUIPMENT INSPECTOR Sign off status: Pending * Provider: Ricci Gaines DPM Date: 0 12/29/2024 Generated for Daniel aguilar/Eleni/Angi on: 1 11/29/2024 11:23 AM EQUIPMENT INSPECTOR
--- OUTSIDE RECORDS SUMMARY | 2025-03-02 09:30 | XMS_ITS ---
Author Organization [facility] Address [address] [place], [place] [id number] Care Team Providers Care Watchmaking Teacher Name Role Phone DINAH GAINES Unavailable [phone] May Anand Unavailable Unavailable GANESH LAUGHLIN Unavailable [phone] Allergies Allergen (clinical drug ingredient) Drug/Non Drug Allergy documented on EMR Reaction Allergy Type Onset Date Status Substance with sulfonamide structure and antibacterial mechanism of action (substance) Product containing sulfonamide (product) (uncoded) Unknown Allergy 10/06/2017 active Substance with penicillin structure and antibacterial mechanism of action (substance) Penicillins Unknown Drug Allergy 10/06/2017 active REASON FOR VISIT *General care Social History Social History Additional Details Category Social Info Options Details Migrated Social History Migrated Social History History of tobacco use : , Smoking Status : Never smoked Vital Signs Height 69.00 in 03/02/2025 Weight 248 lbs 03/02/2025 BMI 36.62 kg/m2 03/02/2025 Height-cm 175.26 cm 03/02/2025 Weight-kg 112.49 kg 03/02/2025 Encounters Encounter Location Date Provider Diagnosis [address] [id number] 03/02/2025 GANESH LAUGHLIN Tinea unguium B35.1 ; Acquired keratosis [keratoderma] palmaris et plantaris L85.1 ; Atherosclerosis of [place] arteries of extremities with intermittent claudication, bilateral legs I70.213 ; Pain in right foot M79.671 and Pain in left foot M79.672 Assessments Encounter Date Diagnosis (ICD Code) Assessment Notes Treatment Notes Treatment Clinical Notes Section Notes 03/02/2025 Tinea unguium (ICD-10 - B35.1) Nails 1-5 Bilateral were debrided extensively with nail nippers and emery board, reducing length and girth to pink healthy tissue with any subungual debris and necrotic tissue removed 03/02/2025 Acquired keratosis [keratoderma] palmaris et plantaris (ICD-10 - L85.1) A total of 1 corns or calluses, as described in the note above, were cut and pared utilizing a #15 blade 03/02/2025 Atherosclerosis of [place] arteries of extremities with intermittent claudication, bilateral legs (ICD-10 - I70.213) 03/02/2025 Pain in right foot (ICD-10 - M79.671) 03/02/2025 Pain in left foot (ICD-10 - M79.672) [...] develop. Provider Name:GANESH ESTRADA, 10/26/2025 02:20:00 PM, [address] [place] [address], [id number], History and Physical Notes * HPI (History [...] Notes * MICHELLE BOTELLODOB:1940 (85 yo F)Acc No.[id number]:03/02/2025 Patient: MICHELLE FORD Provider: Viki LAUGHLIN :1940 A ge:84 Y S ex:Female Date:03/02/2025 Address:[address] [place], [place] [id number] Subjective: * Chief Complaints: * * General [...] seen by Dr. Anand was 12/2024., Initials [facility]. * ROS: G eneral / Constitutional: Patient denies c hills, fever, weight loss. ? M usculoskeletal: Patient denies w eakness, broken foot bone. ? P eripheral Vascular: Patient denies p ain / cramping in legs after exertion, ulceration of feet. S kin: Patient complains of f ungal nails, calluses and corns.? N eurologic: Patient denies b alance difficulty, confusion, difficulty speaking, dizziness. P atient complains of n umbness, balance difficulty. * Family History: F ather: PRN - Father: . M other: PRN - Mother: :: Stroke,,known absent . S ister: SIB - Sister: . F amily History Verified.. * Social History: M igrated Social History: M igrated Social History: History of tobacco use : , Smoking Status : Never smoked. Social History Verified. * Medications: N one * Allergies: P roduct containing sulfonamide (product): Allergy - Onset Date 10/06/2017Penicillins: Allergy - Onset Date 10/06/2017yesAllergies Verified. Objective: * Vitals: W t: 248 lbs, Wt-k.49 kg, Ht: 69.00 in, Ht-cm: 175.26 cm, BMI: 36.62 Index, Body Surface Area: 2.34. * Examination: P hysical Examination: General appearance: [...] - L85.1 3 . A therosclerosis of [place] arteries of extremities with intermittent claudication, bilateral legs - I70.213 4 . P ain in right foot - M79.671 5 . P ain in left foot - M79.672 Plan: * Treatment: 2. A cquired keratosis [keratoderma] palmaris et plantaris Notes: A total of 1 corns or calluses, as described in the note above, were cut and pared utilizing a #15 blade * Immunizations: Immunization record has been reviewed and updated. * Follow Up: 1 0 - 12 weeks (Reason: At-Risk Foot care, sooner if problems develop.) Billing Information: * Visit Code: 14824 Office Visit, Est Pt., Level 3. * Procedure Codes: * Electronic signature of BEN LAUGHLIN DPM on 09/28/2025 at 11:24 AM DIGITAL SALES PLANNER Sign off status: Pending * Provider: Viki LAUGHLIN Date: 0 03/02/2025 Generated for Daniel aguilar/Eleni/Royaitting on: 1 11/29/2024 11:24 AM DIGITAL SALES PLANNER
--- OUTSIDE RECORDS SUMMARY | 2025-05-18 09:00 | XMS_ITS ---
Author Organization [facility] Address [address] [place], [place] [address] Care Team Providers Care Airline Reservation Agent Name Role Phone DINAH GAINES Unavailable [phone] May Anand Unavailable Unavailable GANESH LAUGHLIN Unavailable [phone] Allergies Allergen (clinical drug ingredient) Drug/Non Drug [...] Never smoked Vital Signs Height 69.00 in 05/18/2025 Weight 248 lbs 05/18/2025 BMI 36.62 kg/m2 05/18/2025 Height-cm 175.26 cm 05/18/2025 Weight-kg 112.49 kg 05/18/2025 Encounters Encounter Location Date Provider Diagnosis [address] [id number] 05/18/2025 GANESH LAUGHLIN Tinea unguium B35.1 ; Acquired keratosis [keratoderma] palmaris et plantaris L85.1 ; Atherosclerosis of [place] arteries of extremities with intermittent claudication, bilateral legs I70.213 ; Pain in right foot M79.671 and Pain in left foot M79.672 Assessments Encounter Date Diagnosis (ICD Code) Assessment Notes Treatment Notes Treatment Clinical Notes Section Notes 05/18/2025 Tinea unguium (ICD-10 - B35.1) Nails 1-5 Bilateral were debrided extensively with nail nippers and emery board, reducing length and girth to pink healthy tissue with any subungual debris and necrotic tissue removed 05/18/2025 Acquired keratosis [keratoderma] palmaris et plantaris (ICD-10 - L85.1) A total of 1 corns or calluses, as described in the note above, were cut and pared utilizing a #15 blade 05/18/2025 Atherosclerosis of [place] arteries of extremities with intermittent claudication, bilateral legs (ICD-10 - I70.213) 05/18/2025 Pain in right foot (ICD-10 - M79.671) 05/18/2025 Pain in left foot (ICD-10 - M79.672) [...] develop. Provider Name:GANESH ESTRADA, 10/26/2025 02:20:00 PM, [address] [place] [address], [id number], History and Physical Notes * HPI (History [...] seen by Dr. Anand was 12/2024., Initials nd Examination Category Sub-Category Detail Notes Category Not [...] Notes * MICHELLE BOTELLODOB:1940 (85 yo F)Acc No.[id number]:05/18/2025 Patient: MICHELLE FORD Provider: Viki LAUGHLIN :1940 A ge:85 Y S ex:Female Date:05/18/2025 Address:[address] [place], [place] [id number] Subjective: * Chief Complaints: * * General care * HPI: H PI: General care P esme presents to the office for diabetic foot care. Patient states that their nails are thickened, elongated and painful. Patient states that it is aggravated by shoe gear. Onset is gradual., Patient denies taking prescription blood thinners but does take a daily aspirin., Date last seen by Dr. Anand was 12/2024., Initials nd. * ROS: G eneral / Constitutional: Patient [...] complains of n umbness, balance difficulty. * Medical History: Denies Past Medical History No Medical History Documented Medical History Verified * Surgical History: Denies Past Surgical History. Surgical History verified. * Hospitalization/Major Diagno stic Procedure: Denies Past Hospitalization. Hospitalization Verified. * Family History: F ather: PRN - [...] - L85.1 3 . A therosclerosis of [place] arteries of extremities with intermittent claudication, bilateral legs - I70.213 4 . P ain in right foot - M79.671 5 . P ain in left foot - M79.672 Plan: * Treatment: 2. A cquired keratosis [keratoderma] palmaris et plantaris Notes: A total of 1 corns or calluses, as described in the note above, were cut and pared utilizing a #15 blade * Preventive Medicine: Screenings: F all risk screening F all Risk Assessment: N o falls in the past year. * Follow Up: 1 0 - 12 weeks (Reason: At-Risk Foot care, sooner if problems develop.) Billing Information: * Visit Code: 80667 Office Visit, Est Pt., Level 3. * Procedure Codes: * Electronic signature of BEN LAUGHLIN DPM on 09/28/2025 at 11:24 AM MIX HOUSE OPERATOR Sign off status: Pending * Provider: Viki LAUGHLIN Date: 0 05/18/2025 Generated for Daniel aguilar/Eleni/Angi on: 1 11/29/2024 11:24 AM MIX HOUSE OPERATOR
--- OUTSIDE RECORDS SUMMARY | 2025-08-17 08:00 | XMS_ITS ---
Author Organization [facility] Address [address] [place], [place] [address] Care Team Providers Care Gis Web Developer Name Role Phone DINAH GAINES Unavailable [phone] May Anand Unavailable Unavailable GANESH LAUGHLIN Unavailable [phone] Allergies Allergen (clinical drug ingredient) Drug/Non Drug [...] Never smoked Vital Signs Height 69.00 in 08/17/2025 Weight 248 lbs 08/17/2025 BMI 36.62 kg/m2 08/17/2025 Height-cm 175.26 cm 08/17/2025 Weight-kg 112.49 kg 08/17/2025 Encounters Encounter Location Date Provider Diagnosis [address] [id number] 08/17/2025 GANESH LAUGHLIN Tinea unguium B35.1 ; Pain in left toe(s) M79.675 ; Pain in right toe(s) M79.674 ; Atherosclerosis of [place] arteries of extremities with intermittent claudication, bilateral legs I70.213 ; Acquired keratosis [keratoderma] palmaris et plantaris L85.1 ; Pain in right foot M79.671 and Pain in left foot M79.672 Assessments Encounter Date Diagnosis (ICD Code) Assessment Notes Treatment Notes Treatment Clinical Notes Section Notes 08/17/2025 Tinea unguium (ICD-10 - B35.1) Nails 1-5 Bilateral were debrided extensively with nail nippers and emery board, reducing length and girth to pink healthy tissue with any subungual debris and necrotic tissue removed 08/17/2025 Pain in left toe(s) (ICD-10 - M79.675) 08/17/2025 Pain in right toe(s) (ICD-10 - M79.674) 08/17/2025 Atherosclerosis of [place] arteries of extremities with intermittent claudication, bilateral legs (ICD-10 - I70.213) Patient educated on risks and aggravating factors of PVD, including conservative treatment options such as a diet and exercise regimen to aid in slowing progression of vascular disease. Check and protect LE bilateral daily. Call if any changes or concerns. 08/17/2025 Acquired keratosis [keratoderma] palmaris et plantaris (ICD-10 - L85.1) A total of 1 corns or calluses, as described in the note above, were cut and pared utilizing a #15 blade 08/17/2025 Pain in right foot (ICD-10 - M79.671) 08/17/2025 Pain in left foot (ICD-10 - M79.672) Plan Of Treatment Treatment Notes Assessment Notes Tinea unguium Nails 1-5 Bilateral were debrided extensively with nail nippers and emery board, reducing length and girth to pink healthy tissue with any subungual debris and necrotic tissue removed Atherosclerosis of [place] ar teries of extremities with intermittent claudication, bilateral legs Patient educated on risks and aggravatin g factors of PVD, including conservative treatment options such as a diet and exercise regimen to aid in slowing progression of vascular disease. Check and protect LE bilateral daily. Call if any changes or concerns. Acquired keratosis [keratode rma] palmaris et plantaris A total of 1 corns or calluses, as described in the note above, were cut and pared utilizing a #15 blade Next Appt Details Follow Up: 10 - 12 weeks, Re ason: At-Risk Foot care, sooner if problems develop. Provider Name:GANESH ESTRADA, 10/26/2025 02:20:00 PM, [address] [place] [address], [id number], History and Physical Notes * HPI (History [...] Date last seen by Dr. Anand was 07/2025., Initials nd Examination Category Sub-Category Detail Notes [...] Notes * MICHELLE BOTELLODOB:1940 (85 yo F)Acc No.[id number]:08/17/2025 Patient: MICHELLE FORD Provider: Viki LAUGHLIN :1940 A ge:85 Y S ex:Female Date:08/17/2025 Address:[address] [place], [place] [id number] Subjective: * Chief Complaints: * * General [...] Date last seen by Dr. Anand was 07/2025., Initials nd. * ROS: G eneral / [...] inea unguium - B35.1 (Primary) 2 . P ain in left toe(s) - M79.675 3 . P ain in right toe(s) - M79.674 4 . A therosclerosis of [place] arteries of extremities with intermittent claudication, bilateral legs - I70.213 5 . A cquired keratosis [keratoderma] palmaris et plantaris - L85.1 6 . P ain in right foot - M79.671 7 . P ain in left foot - M79.672 Plan: * Treatment: 2. A therosclerosis of [place] arteries of extremities with intermittent claudication, bilateral legs Notes: Patient educated on risks and aggravating factors of PVD, including conservative treatment options such as a diet and exercise regimen to aid in slowing progression of vascular disease. Check and protect LE bilateral daily. Call if any changes or concerns. 3. A cquired keratosis [keratoderma] palmaris et plantaris Notes: A total of 1 corns or calluses, as described in the note above, were cut and pared utilizing a #15 blade * Follow Up: 1 0 - 12 weeks (Reason: At-Risk Foot care, sooner if problems develop.) Billing Information: * Visit Code: 53972 Office Visit, Est Pt., Level 3. * Procedure Codes: * Electronic signature of BEN LAUGHLIN DPM on 09/28/2025 at 11:24 AM SET UP MACHINIST Sign off status: Pending * Provider: Viki LAUGHLIN Date: 10/17/2024 Generated for Daniel aguilar/Eleni/Angi on: 11/29/2024 11:24 AM SET UP MACHINIST
[2025-09-28 10:59] LABS: Hematocrit 31.6 % (35.0-42.0); Hemoglobin 9.2 g/dL (11.7-13.8); Mean Corpuscular HGB Conc 29.1 g/dL (32-36); Mean Corpuscular Hemoglobin 28.3 pg (27.0-31.0); Mean Corpuscular Volume 97.2 fL (78.0-102.0); Platelet Count Result 209 K/mm3 (150-420); Red Blood Count 3.25 M/mm3 (4.20-5.40); White Blood Count 6.5 K/mm3 (4.8-10.8)
[2025-09-28 11:00] LABS: Add Urine Microscopic? NO; Appearance Urine Clear (Clear); Glucose Urine UA Negative (Negative); Leukocyte Esterase Ur Negative (Negative); Nitrate Urine Negative (Negative); Specific Grav Ur 1.020 (1.010-1.020)
[2025-09-28 11:10] LABS: Hemoglobin A1C 6.5 % (<5.7)
--- OUTSIDE RECORDS SUMMARY | 2025-09-28 11:24 | XMS_ITS | Patient Health Record ---
Author Organization [facility] Address [address] [place], [place] [address] Care Team Providers Care Toilet Products Molder Name Role Phone DINAH GAINES Unavailable [phone] May Anand Unavailable Unavailable GANESH LAUGHLIN Unavailable [phone] Allergies Allergen (clinical drug ingredient) Drug/Non Drug Allergy documented on EMR Reaction Allergy Type Onset Date Status Substance with sulfonamide structure and antibacterial mechanism of action (substance) Product containing sulfonamide (product) (uncoded) Unknown Allergy 10/06/2017 active Substance with penicillin structure and antibacterial mechanism of action (substance) Penicillins Unknown Drug Allergy 10/06/2017 active Reason For Referral No Information Immunizations Vaccine Route Administration Date Status Comme nts Influenza, high dose seasonal Unknown 08/14/2023 Admini stered Tdap Unknown 12/11/2022 Administered Social History Social History Additional Details Category Social Info Options Details Migrated Social History Migrated Social History History of tobacco use : , Smoking Status : Never smoked Vital Signs Height-cm 175.26 cm 08/17/2025 Weight-kg 112.49 kg 08/17/2025 Height 69.00 in 08/17/2025 Weight 248 lbs 08/17/2025 BMI 36.62 kg/m2 08/17/2025 Encounters Encounter Location Date Provider Diagnosis [address] [id number] 12/29/2024 DINAH GAINES Tinea unguium B35.1 ; Acquired keratosis [keratoderma] palmaris et plantaris L85.1 ; Atherosclerosis of [place] arteries of extremities with intermittent claudication, bilateral legs I70.213 ; Pain in right foot M79.671 and Pain in left foot M79.[address] [id number] 03/02/2025 GANESH LAUGHLIN Tinea unguium B35.1 ; Acquired keratosis [keratoderma] palmaris et plantaris L85.1 ; Atherosclerosis of [place] arteries of extremities with intermittent claudication, bilateral legs I70.213 ; Pain in right foot M79.671 and Pain in left foot M79.[address] [id number] 05/18/2025 GANESH LAUGHLIN Tinea unguium B35.1 ; Acquired keratosis [keratoderma] palmaris et plantaris L85.1 ; Atherosclerosis of [place] arteries of extremities with intermittent claudication, bilateral legs I70.213 ; Pain in right foot M79.671 and Pain in left foot M79.[address] [id number] 08/17/2025 GANESH LAUGHLIN Tinea unguium B35.1 ; Pain in left toe(s) M79.675 ; Pain in right toe(s) M79.674 ; Atherosclerosis of [place] arteries of extremities with intermittent claudication, bilateral [...] and pared utilizing a #15 blade 03/02/2025 Tinea unguium (ICD-10 - B35.1) Nails [...] and pared utilizing a #15 blade 05/18/2025 Tinea unguium (ICD-10 - B35.1) Nails [...] and pared utilizing a #15 blade 08/17/2025 Tinea unguium (ICD-10 - B35.1) Nails 1-5 Bilateral were debrided extensively with nail nippers and emery board, reducing length and girth to pink healthy tissue with any subungual debris and necrotic tissue removed 08/17/2025 Pain in left toe(s) (ICD-10 - M79.675) 08/17/2025 Pain in right toe(s) (ICD-10 - M79.674) 05/18/2025 Atherosclerosis of [place] arteries of extremities with intermittent claudication, bilateral legs (ICD-10 - I70.213) 03/02/2025 Atherosclerosis of [place] arteries of extremities with intermittent claudication, bilateral legs (ICD-10 - I70.213) 12/29/2024 Atherosclerosis of [place] arteries of extremities with intermittent claudication, bilateral legs (ICD-10 - I70.213) 12/29/2024 Pain in right foot (ICD-10 - M79.671) 03/02/2025 Pain in right foot (ICD-10 - M79.671) 05/18/2025 Pain in right foot (ICD-10 - M79.671) 08/17/2025 Atherosclerosis of [place] arteries of extremities with intermittent claudication, bilateral [...] and pared utilizing a #15 blade 05/18/2025 Pain in left foot (ICD-10 - M79.672) 03/02/2025 Pain in left foot (ICD-10 - M79.672) 12/29/2024 Pain in left foot (ICD-10 - M79.672) 08/17/2025 Pain in right foot (ICD-10 - M79.671) 08/17/2025 Pain in left foot (ICD-10 - M79.672) Plan Of Treatment Next Appt Details Provider Name:GANESH ESTRADA, 10/26/2025 02:20:00 PM, [address] [place] [address], [id number], Insurance Providers Payer Name Payer Address Payer Phone Subscriber Number Group Number Insured Name Patient Relationship to Insured Coverage Start Date Coverage End Date [facility] [address] [address] [place] [id number] MICHELLE BOTELLO Self - patient is the insured
[2025-09-28 11:37] LABS: Alanine Aminotransferase 21 U/L (6-35); Albumin Level 4.1 g/dL (3.5-5.1); Alkaline Phosphatase 108 U/L (38-126); Anion Gap 10 mmol/L (4-12); Aspartate Amino Transferase 26 U/L (14-36); Bilirubin,Total 0.3 mg/dL (0.2-1.3); Blood Urea Nitrogen 24 mg/dL (7-17); Calcium 9.3 mg/dL (8.4-10.2); Carbon Dioxide 27 mmol/L (22-30); Chloride 107 mmol/L (98-107); Estimated Glomerular Filt Rate 50; Glucose 138 mg/dL (65-110); Osmolality Calculated 304 mOsm/kg (285-295); Potassium 4.4 mmol/L (3.4-5.0); Sodium 144 mmol/L (137-145); Total Protein 7.1 g/dL (6.3-8.2)
== END 2025-09-28 10:33 | disposition home or self-care (01) ==
PROVIDERS: PCP Internal Medicine; Visit Provider Internal Medicine
DX: E11.65 Type 2 diabetes mellitus with hyperglycemia (principal); N18.2 Chronic kidney disease, stage 2 (mild); N39.0 Urinary tract infection, site not specified; R53.82 Chronic fatigue, unspecified
CPT/HCPCS: 36415; 80053; 81003; 83036; 85027; 87086